=== PATIENT | male | born 1965 | race African-American/Black ===

== ENCOUNTER 2017-07-01 12:23 | Inpatient (IN) | payer OTHER ==
[2017-07-01 15:36] VITALS: BMI 25.7
--- NOTE | 2017-07-01 16:56 | HP ---
CIWA Score - CIWA Score Nausea/Vomitin-Mild Nausea/No Vomiting Muscle Tremors: 3 Anxiety: 4-Mod. Anxious/Guarded Agitation: 4-Moderately Restless Paroxysmal Sweats: 1-Minimal Palms Moist Orientation: 0-Oriented Tacttile Disturbances: 0-None Auditory Disturbances: 0-None Visual Disturbances: 0-None Headache: 0-None Present CIWA-Ar Total Score: 13 Admission ROS S - HPI Chief Complaint: withdrawal sx Allergies/Adverse Reactions: Allergies Allergy/AdvReac Type Severity Reaction Status Date / Time No Known Allergies Allergy Verified 07/01/17 16:32 History of Present Illness: 52 years old male with long history of alcohol nicotine cocaine dependence has diabetes ii, NEUROPATHY, GERD, AND DEPRESSION, SUPERFICIAL SELF CUT 06/27/17, TREATED AT [facility] FROM 06/30-07/01, DISCHARGED TO [facility] FOR ALCOHOL DETOX IS ADMITTED TO DETOX Exam Limitations: No Limitations - Ebola screening Have you traveled outside of the country in the last 21 days: No Have you had contact with anyone from an Ebola affected area: No Have you been sick,other than usual withdrawal symptoms: No Do you have a fever: No - Review of Systems Constitutional: Loss of Appetite, Changes in sleep, Unintentional Wgt. Loss, Unexplained wgt Loss EENT: reports: No Symptoms Reported Respiratory: reports: No Symptoms reported Cardiac: reports: No Symptoms Reported GI: reports: Nausea, Poor Appetite, Poor Fluid Intake, Indigestion, Abdominal cramping : reports: No Symptoms Reported Musculoskeletal: reports: No Symptoms Reported Integumentary: reports: Change in Color (LEFT WRIST SUPERFICIAL CUT -) Neuro: reports: Tremors Endocrine: reports: No Symptoms Reported Hematology: reports: No Symptoms Reported Psychiatric: reports: Judgement Intact, Orientated x3, Depressed Other Systems: Reviewed and Negative Patient History - Patient Medical History Hx Anemia: No Hx Asthma: No Hx Chronic Obstructive Pulmonary Disease (COPD): No Hx Cancer: No Hx Cardiac Disorders: No Hx Congestive Heart Failure: No Hx Hypertension: Yes Hx Hypercholesterolemia: No Hx Pacemaker: No HX Cerebrovascular Accident: No Hx Seizures: No Hx Dementia: No Hx Diabetes: Yes Hx Gastrointestinal Disorders: Yes Hx Liver Disease: No Hx Genitourinary Disorders: No Hx Sexually Transmitted Disorders: Yes (SYPHILUS) Hx Renal Disease (ESRD): No Hx Thyroid Disease: No Hx Human Immunodeficiency Virus (HIV): No Hx Hepatitis C: Yes (TREATED) Hx Depression: Yes Hx Suicide Attempt: Yes (CUT SELF 06/27/17) Hx Bipolar Disorder: No Hx Schizophrenia: No - Patient Surgical History Past Surgical History: Yes Hx Neurologic Surgery: No Hx Cataract Extraction: No Hx Cardiac Surgery: No Hx Lung Surgery: No Hx Breast Surgery: No Hx Breast Biopsy: No Hx Abdominal Surgery: No Hx Appendectomy: No Hx Cholecystectomy: No Hx Genitourinary Surgery: No Hx Orthopedic Surgery: Yes (RIGHT ANKLE [id number]) Anesthesia Reaction: No - PPD History Previous Implant?: Yes Documented Results: Negative w/o proof Implanted On Prior [facility] Admission?: No PPD to be Administered?: Yes - Smoking Cessation Smoking history: Current every day smoker Have you smoked in the past 12 months: Yes Aproximately how many cigarettes per day: 4 Cigars Per Day: 0 Hx Chewing Tobacco Use: No Initiated information on smoking cessation: Yes 'Breaking Loose' booklet given: 07/01/17 - Substance & Tx. History Hx Alcohol Use: Yes Hx Substance Use: Yes Substance Use Type: Alcohol, Cocaine Hx Substance Use Treatment: Yes ("YEARS AGO") - Substances Abused Alcohol Route: Oral Frequency: Daily Amount used: 2 PINTS VOLKA Age of first use: 23 Date of Last Use: 06/30/17 Admission Physical Exam [facility] - Vital Signs Vital Signs: Vital Signs - 24 hr 07/01/17 15:34 Temperature 96.8 F L Pulse Rate 69 Respiratory 20 Rate Blood Pressure 137/93 - Physical General Appearance: Yes: Appropriately Dressed, Mild Distress, Thin, Tremorous, Irritable, Sweating, Anxious HEENTM: Yes: Hearing grossly Normal, Normal ENT Inspection, Normocephalic, Normal Voice Respiratory: Yes: Chest Non-Tender, Lungs Clear, Normal Breath Sounds, No Respiratory Distress, No Accessory Muscle Use Neck: Yes: Supple, Trachea in good position Breast: Yes: Breasts Symetrical Cardiology: Yes: Regular Rhythm, Regular Rate, S1, S2 Abdominal: Yes: Normal Bowel Sounds, Non Tender, Soft Genitourinary: Yes: Within Normal Limits Back: Yes: Normal Inspection Musculoskeletal: Yes: full range of Motion, Gait Steady Extremities: Yes: Normal Range of Motion, Non-Tender, Tremors, Other (LEFT WRIST SELF CUT SUPERFICIAL 06/27/17) Neurological: Yes: Fully Oriented, Alert, Motor Strength 5/5, Normal Response, Depressed Affect Integumentary: Yes: Warm, Other (LEFT WRIST VERTICAL SELF CUT 06/27/17) Lymphatic: Yes: Within Normal Limits - Diagnostic (1) Alcohol dependence with uncomplicated withdrawal Current Visit: Yes Status: Acute (2) Diabetes mellitus, type II, insulin dependent Current Visit: Yes Status: Chronic (3) Hypertension Current Visit: Yes Status: Chronic Qualifiers: Hypertension type: essential hypertension Qualified Code(s): I10 - Essential (primary) hypertension (4) Depression Current Visit: Yes Status: Suspected Qualifiers: Depression Type: dysthymia Qualified Code(s): F34.1 - Dysthymic disorder (5) Syphilis contact, treated Current Visit: Yes Status: Resolved (6) GERD (gastroesophageal reflux disease) Current Visit: Yes Status: Chronic Qualifiers: Esophagitis presence: without esophagitis Qualified Code(s): K21.9 - Gastro-esophageal reflux disease without esophagitis (7) Nicotine dependence Current Visit: Yes Status: Acute Qualifiers: Nicotine product type: cigarettes Substance use status: in withdrawal Qualified Code(s): F17.213 - Nicotine dependence, cigarettes, with withdrawal (8) Weight loss Current Visit: Yes Status: Acute (9) Hepatitis C carrier Current Visit: Yes Status: Resolved (10) Injury of wrist, left, superficial Current Visit: Yes Status: Acute Qualifiers: Encounter type: subsequent encounter Qualified Code(s): S60.912D - Unspecified superficial injury of left wrist, subsequent encounter Comment: NO SIGNS OF INFECTION KEEP AREA CLEAN AND DRY BACITRACIN OINTMENT PRN Cleared for Admission S - Detox or Rehab [facility] Level of Care: Medically Managed Detox Regimen/Protocol: Librium [facility] Breath Alcohol Content Breath Alcohol Content: 0 Urine Drug Screen - Results Drug Screen Negative: No Urine Drug Screen Results: BILL-Cocaine
[2017-07-01] MEDS ORDERED: NICOTINE POLACRILEX 2 MG GUM BC PRN (17:02)
[2017-07-01] MEDS ORDERED: hydrOXYzine PAMOATE 50 MG CAPSULE (FP) PO PRN (17:02)
[2017-07-01] MEDS ORDERED: guaiFENesin/D-METHORPHAN HB 10 ML UNIT-DOSE CUPS PO PRN (17:02)
[2017-07-01] MEDS ORDERED: MAG HYDROX/AL HYDROX/SIMETH 30 ML UNIT-DOSE CUP PO PRN (17:02)
[2017-07-01] MEDS ORDERED: MAGNESIUM CITRATE 300 ML BOTTLE PO PRN (17:02)
[2017-07-01] MEDS ORDERED: NICOTINE 14 MG/24 HOURS TOPICAL PATCH TD PRN (17:02)
[2017-07-01] MEDS ORDERED: MENTHOL/PHENOL 1 EACH UD MM PRN (17:02)
[2017-07-01] MEDS ORDERED: ACETAMINOPHEN 325 MG TABLET (FP) PO PRN (17:02)
[2017-07-01] MEDS ORDERED: LOPERAMIDE HCL 2 MG CAPSULE PO PRN (17:02)
[2017-07-01] MEDS ORDERED: P-EPHED 60MG/TRIPROLIDI 2.5MG TABLET PO PRN (17:02)
[2017-07-01] MEDS ORDERED: MAGNESIUM HYDROX 2400MG/30ML ORAL SUSPENSION 30 ML CUP PO PRN (17:02)
[2017-07-01] MEDS ORDERED: chlordiazePOXIDE HCL 25 MG CAPSULE PO PRN (17:02)
[2017-07-01] MEDS ORDERED: COLLOIDAL OATMEAL 1 BAR EACH TP PRN (17:10)
[2017-07-01] MEDS: BACITRACIN 0.9 GM PACKET TP SCH ×2 (18:29→22:10)
[2017-07-01] MEDS ORDERED: INSULIN (NOVOLOG) ASPART 100 UNITS/ML 10ML VIAL ONE (21:33)
[2017-07-01] MEDS: INSULIN SLIDING SCALE (NOVOLOG) 1 VIAL SQ SCH (21:47)
[2017-07-01] MEDS: RANITIDINE HCL 150 MG TABLET (FP) PO SCH (22:10)
[2017-07-01] MEDS: THIAMINE HCL 100 MG TABLET (FP) PO SCH (22:10)
[2017-07-01] MEDS: chlordiazePOXIDE HCL 25 MG CAPSULE PO SCH (22:10)
[2017-07-01] MEDS: diphenhydrAMINE HCL 50 MG CAPSULE PO PRN (22:11)
[2017-07-01] MEDS: GABAPENTIN 400 MG CAPSULE (FP) PO SCH (22:11)
[2017-07-01] MEDS: MINERAL OIL/PETROLAT/WATER TOPICAL CREAM 113 GM JAR TP SCH (22:12)
[2017-07-01 23:19] LABS: URINE APPEARANCE CLEAR; URINE BILIRUBIN NEGATIVE (NEGATIVE); URINE BLOOD TRACE-INTA (NEGATIVE); URINE COLOR LT. YELLOW; URINE GLUCOSE (UA) 3+ (NEGATIVE); URINE KETONE NEGATIVE (NEGATIVE); URINE NITRITE NEGATIVE (NEGATIVE); URINE PROTEIN NEGATIVE (NEGATIVE); URINE UROBILINOGEN 0.2 mg/dL (0.2-1.0)
[2017-07-02] MEDS: chlordiazePOXIDE HCL 25 MG CAPSULE PO SCH ×4 (06:41→22:03)
[2017-07-02] MEDS: GABAPENTIN 400 MG CAPSULE (FP) PO SCH ×4 (06:41→22:03)
[2017-07-02] MEDS: metFORMIN HCL 500 MG TABLET (FP) PO SCH ×2 (07:23→16:46)
[2017-07-02] MEDS ORDERED: INSULIN (NOVOLOG) ASPART 100 UNITS/ML 10ML VIAL ONE ×4 (07:25→21:55)
[2017-07-02] MEDS: INSULIN SLIDING SCALE (NOVOLOG) 1 VIAL SQ SCH ×4 (07:25→22:04)
[2017-07-02 09:40] LABS: MCH 27.2 pg (25.7-33.7); MCHC 32.3 g/dl (32.0-35.9); MEAN CELL VOLUME 84.4 fl (80-96); MEAN PLT VOLUME 7.3 fl (7.5-11.1); PLATELET COUNT 337 K/MM3 (134-434); RDW 14.3 % (11.9-15.9); WHITE BLOOD COUNT 5.6 K/mm3 (4.0-10.0)
[2017-07-02 10:04] LABS: ALBUMIN 2.9 g/dl (3.4-5.0); ALK PHOS 68 U/L (45-117); ANION GAP 7 (8-16); BILIRUBIN,TOTAL 0.2 mg/dL (0.2-1.0); CALCIUM 8.5 mg/dL (8.5-10.1); CO2 28 mmol/L (21-32); GLUCOSE,RANDOM 293 mg/dL (74-106); SGOT/AST 13 U/L (15-37); SGPT/ALT 28 U/L (12-78); TOT PROT 6.4 g/dl (6.4-8.2)
[2017-07-02] MEDS: LISINOPRIL 10 MG TABLET (FP) PO SCH (10:14)
[2017-07-02] MEDS: PRENATAL VITAMINS W/ FOLIC ACID TABLET (FP) PO SCH (10:14)
[2017-07-02] MEDS: RANITIDINE HCL 150 MG TABLET (FP) PO SCH ×2 (10:14→22:03)
[2017-07-02] MEDS: BACITRACIN 0.9 GM PACKET TP SCH ×4 (10:14→22:03)
--- NOTE | 2017-07-02 10:58 | CONSULT ---
[facility] Psychiatric Consult - Data Date of interview: 07/02/17 Admission source: [facility] Identifying data: First admission to [facility] for this 52 y/o AA male seeking detox treatment on for alcohol and cocaine dependence.Patient is single, a father of two,domiciled,unemployed and supported on Public Assistance. Substance Abuse History: Confirmed by patient in this session. Smoking Cessation. Smoking history: Current every day smoker. Have you smoked in the past 12 months: Yes. Aproximately how many cigarettes per day: 4. Cigars Per Day: 0. Hx Chewing Tobacco Use: No. Initiated information on smoking cessation : Yes. 'Breaking Loose' booklet given: 07/01/17. - Substance & Tx. History. Hx Alcohol Use: Yes. Hx Substance Use: Yes. Substance Use Type: Alcohol, Cocaine. Hx Substance Use Treatment: Yes ("YEARS AGO"). - Substances Abused. Alcohol. Route: Oral. Frequency: Daily. Amount used: 2 PINTS VOLKA. Age of first use: 23. Date of Last Use: 06/30/17 Medical History: GERD,diabetes mellitus,hypertension,neuropathy and a history of orthosurgery for fracture of right ankle (1993) + past treatment for syphilis. Psychiatric History: Patient admits to one psychiatric hospitalization at [facility].Diagnosed with " Mood Disorder " as per self- report.Prescribed seroquel 150 mg " for sleep ".Mr Shi indicates that he does not have an OPD care provider.Non-adherent to medication for " some time ".Patient denies history of suicide attempts. Physical/Sexual Abuse/Trauma History: Patient denies history of abuse. Additional Comment: Urine Drug Screen Results: BILL-Cocaine.Noted. Mental Status Exam - Mental Status Exam Alert and Oriented to: Time, Place, Person Cognitive Function: Good Patient Appearance: Well Groomed Mood: Hopeful, Euthymic Affect: Appropriate, Normal Range Patient Behavior: Fatigued, Cooperative Speech Pattern: Clear, Appropriate Voice Loudness: Normal Thought Process: Goal Oriented Thought Disorder: Not Present Hallucinations: Denies Suicidal Ideation: Denies Homicidal Ideation: Denies Insight/Judgement: Poor Sleep: Poorly, Difficulty falling asleep Appetite: Good Muscle strength/Tone: Normal Gait/Station: Normal Psychiatric Findings - Problem List ([place] 1, 2,3) (1) Alcohol dependence with uncomplicated withdrawal Status: Acute (2) Cocaine dependence Status: Acute (3) Nicotine dependence Status: Acute Qualifiers: Nicotine product type: cigarettes Substance use status: in withdrawal Qualified Code(s): F17.213 - Nicotine dependence, cigarettes, with withdrawal (4) Substance induced mood disorder Status: Acute (5) Diabetes mellitus, type II, insulin dependent Status: Chronic (6) GERD (gastroesophageal reflux disease) Status: Chronic Qualifiers: Esophagitis presence: without esophagitis Qualified Code(s): K21.9 - Gastro-esophageal reflux disease without esophagitis (7) Hypertension Status: Chronic Qualifiers: Hypertension type: essential hypertension Qualified Code(s): I10 - Essential (primary) hypertension (8) Hepatitis C carrier Status: Resolved (9) Syphilis contact, treated Status: Resolved (10) Injury of wrist, left, superficial Status: Acute Qualifiers: Encounter type: subsequent encounter Qualified Code(s): S60.912D - Unspecified superficial injury of left wrist, subsequent encounter Comment: NO SIGNS OF INFECTION KEEP AREA CLEAN AND DRY BACITRACIN OINTMENT PRN (11) Insomnia Status: Acute - Initial Treatment Plan Initial Treatment Plan: Psychoeducation.Detoxification.Seroquel 150 mg po hs at patient's request.Side effects/benefits discussed with patient.He agrees to follow this careplan.Recent pharmacy claims,in view of scripts for lithium () and sertraline (06/06/17),are discussed with patient.Mr Shi denies taking these medications.Observation.
--- NOTE | 2017-07-02 11:25 | PN ---
[facility] CIWA - CIWA Score Nausea/Vomitin-No Nausea/No Vomiting Muscle Tremors: 4-Moderate,w/Arms Extend Anxiety: 4-Mod. Anxious/Guarded Agitation: 4-Moderately Restless Paroxysmal Sweats: 1-Minimal Palms Moist Orientation: 0-Oriented Tacttile Disturbances: 3-Moderate Itch/Numb/Burn Auditory Disturbances: 0-None Visual Disturbances: 0-None Headache: 0-None Present CIWA-Ar Total Score: 16 S Progress Note (SOAP) Subjective: ANXIETY,SWEATS,IRRITABILITY,TREMORS, DIARRHEA. Objective: 07/02/17 11:24 Vital Signs Temperature 96.6 F L 07/02/17 09:12 Pulse Rate 67 07/02/17 09:12 Respiratory Rate 18 07/02/17 09:12 Blood Pressure 141/90 07/02/17 09:12 O2 Sat by Pulse Oximetry (%) Laboratory Last Values WBC 5.6 K/mm3 (4.0-10.0) 07/02/17 07:00 RBC 4.27 M/mm3 (4.00-5.60) 07/02/17 07:00 Hgb 11.6 GM/dL (11.7-16.9) L 07/02/17 07:00 Hct 36.0 % (35.4-49) 07/02/17 07:00 MCV 84.4 fl (80-96) 07/02/17 07:00 MCH 27.2 pg (25.7-33.7) 07/02/17 07:00 MCHC 32.3 g/dl (32.0-35.9) 07/02/17 07:00 RDW 14.3 % (11.9-15.9) 07/02/17 07:00 Plt Count 337 K/MM3 (134-434) 07/02/17 07:00 MPV 7.3 fl (7.5-11.1) L 07/02/17 07:00 Sodium 141 mmol/L (136-145) 07/02/17 07:00 Potassium 4.2 mmol/L (3.5-5.1) 07/02/17 07:00 Chloride 106 mmol/L (98-107) 07/02/17 07:00 Carbon Dioxide 28 mmol/L (21-32) 07/02/17 07:00 Anion Gap 7 (8-16) L 07/02/17 07:00 BUN 14 mg/dL (7-18) 07/02/17 07:00 Creatinine 1.0 mg/dL (0.7-1.3) 07/02/17 07:00 Creat Clearance w eGFR > 60 (>60) 07/02/17 07:00 POC Glucometer 300 UNITS (()) 07/02/17 10:41 Random Glucose 293 mg/dL (74-106) H 07/02/17 07:00 Calcium 8.5 mg/dL (8.5-10.1) 07/02/17 07:00 Total Bilirubin 0.2 mg/dL (0.2-1.0) 07/02/17 07:00 AST 13 U/L (15-37) L 07/02/17 07:00 ALT 28 U/L (12-78) 07/02/17 07:00 Alkaline Phosphatase 68 U/L (45-117) 07/02/17 07:00 Total Protein 6.4 g/dl (6.4-8.2) 07/02/17 07:00 Albumin 2.9 g/dl (3.4-5.0) L 07/02/17 07:00 Urine Color Lt. yellow 07/01/17 18:30 Urine Appearance Clear 07/01/17 18:30 Urine pH 6.0 (5.0-8.0) 07/01/17 18:30 Urine Protein Negative (NEGATIVE) 07/01/17 18:30 Urine Glucose (UA) 3+ (NEGATIVE) H 07/01/17 18:30 Urine Ketones Negative (NEGATIVE) 07/01/17 18:30 Urine Blood Trace-inta (NEGATIVE) 07/01/17 18:30 Urine Nitrite Negative (NEGATIVE) 07/01/17 18:30 Urine Bilirubin Negative (NEGATIVE) 07/01/17 18:30 Urine Urobilinogen 0.2 mg/dL (0.2-1.0) 07/01/17 18:30 Assessment: 07/02/17 11:24 WITHDRAWAL SX Plan: CONTINUE DETOX IMODIUM PRN
--- NOTE | 2017-07-02 13:05 | EKG ---
Test Reason : Blood Pressure : / mmHG Vent. Rate : 071 BPM Atrial Rate : 071 BPM P-R Int : 162 ms QRS Dur : 080 ms QT Int : 458 ms P-R-T Axes : 070 065 069 degrees QTc Int : 497 ms NORMAL SINUS RHYTHM SUBOPTIMAL TRACING,BASELINE ARTIFACTS NONSPECIFIC ST ABNORMALITY AND U WAVES IN PRECHORDIAL LEADS PROLONGED QT ABNORMAL ECG NO PREVIOUS ECGS AVAILABLE CORRELATE CLINICALLY AND REPEAT TRACING INDICATED Confirmed by CLARE MANCILLA MD ([id number]) on 07/02/2017 1:05:14 PM Referred By: Confirmed By:CLARE MANCILLA MD
[2017-07-02] MEDS: diphenhydrAMINE HCL 50 MG CAPSULE PO PRN (22:03)
[2017-07-02] MEDS: MINERAL OIL/PETROLAT/WATER TOPICAL CREAM 113 GM JAR TP SCH (22:04)
[2017-07-02] MEDS: THIAMINE HCL 100 MG TABLET (FP) PO SCH (22:58)
[2017-07-03] MEDS: GABAPENTIN 400 MG CAPSULE (FP) PO SCH (06:30)
[2017-07-03] MEDS: chlordiazePOXIDE HCL 25 MG CAPSULE PO SCH ×2 (06:30→10:17)
[2017-07-03] MEDS ORDERED: INSULIN (NOVOLOG) ASPART 100 UNITS/ML 10ML VIAL ONE (07:54)
[2017-07-03] MEDS: metFORMIN HCL 500 MG TABLET (FP) PO SCH (08:01)
[2017-07-03] MEDS: INSULIN SLIDING SCALE (NOVOLOG) 1 VIAL SQ SCH ×2 (08:01→11:18)
[2017-07-03] MEDS: RANITIDINE HCL 150 MG TABLET (FP) PO SCH (10:17)
[2017-07-03] MEDS: PRENATAL VITAMINS W/ FOLIC ACID TABLET (FP) PO SCH (10:17)
[2017-07-03] MEDS: BACITRACIN 0.9 GM PACKET TP SCH (10:17)
[2017-07-03] MEDS: LISINOPRIL 10 MG TABLET (FP) PO SCH (10:17)
--- NOTE | 2017-07-03 10:52 | PN ---
[facility] CIWA - CIWA Score Nausea/Vomitin-No Nausea/No Vomiting Muscle Tremors: 4-Moderate,w/Arms Extend Anxiety: 3 Agitation: 3 Paroxysmal Sweats: 1-Minimal Palms Moist Orientation: 0-Oriented Tacttile Disturbances: 3-Moderate Itch/Numb/Burn Auditory Disturbances: 0-None Visual Disturbances: 0-None Headache: 0-None Present CIWA-Ar Total Score: 14 S Progress Note (SOAP) Subjective: DECREASED TREMORS, ANXITY, SWEATS. ALERT O X 3. NAD. Objective: 07/03/17 10:51 Vital Signs Temperature 98.7 F 07/03/17 09:53 Pulse Rate 69 07/03/17 09:53 Respiratory Rate 20 07/03/17 09:53 Blood Pressure 136/86 07/03/17 09:53 O2 Sat by Pulse Oximetry (%) Laboratory Last Values WBC 5.6 K/mm3 (4.0-10.0) 07/02/17 07:00 RBC 4.27 M/mm3 (4.00-5.60) 07/02/17 07:00 Hgb 11.6 GM/dL (11.7-16.9) L 07/02/17 07:00 Hct 36.0 % (35.4-49) 07/02/17 07:00 MCV 84.4 fl (80-96) 07/02/17 07:00 MCH 27.2 pg (25.7-33.7) 07/02/17 07:00 MCHC 32.3 g/dl (32.0-35.9) 07/02/17 07:00 RDW 14.3 % (11.9-15.9) 07/02/17 07:00 Plt Count 337 K/MM3 (134-434) 07/02/17 07:00 MPV 7.3 fl (7.5-11.1) L 07/02/17 07:00 Sodium 141 mmol/L (136-145) 07/02/17 07:00 Potassium 4.2 mmol/L (3.5-5.1) 07/02/17 07:00 Chloride 106 mmol/L (98-107) 07/02/17 07:00 Carbon Dioxide 28 mmol/L (21-32) 07/02/17 07:00 Anion Gap 7 (8-16) L 07/02/17 07:00 BUN 14 mg/dL (7-18) 07/02/17 07:00 Creatinine 1.0 mg/dL (0.7-1.3) 07/02/17 07:00 Creat Clearance w eGFR > 60 (>60) 07/02/17 07:00 POC Glucometer 305 UNITS (()) 07/03/17 06:17 Random Glucose 293 mg/dL (74-106) H 07/02/17 07:00 Calcium 8.5 mg/dL (8.5-10.1) 07/02/17 07:00 Total Bilirubin 0.2 mg/dL (0.2-1.0) 07/02/17 07:00 AST 13 U/L (15-37) L 07/02/17 07:00 ALT 28 U/L (12-78) 07/02/17 07:00 Alkaline Phosphatase 68 U/L (45-117) 07/02/17 07:00 Total Protein 6.4 g/dl (6.4-8.2) 07/02/17 07:00 Albumin 2.9 g/dl (3.4-5.0) L 07/02/17 07:00 Urine Color Lt. yellow 07/01/17 18:30 Urine Appearance Clear 07/01/17 18:30 Urine pH 6.0 (5.0-8.0) 07/01/17 18:30 Ur Specific [place] 1.010 (1.005-1.025) 07/01/17 18:30 Urine Protein Negative (NEGATIVE) 07/01/17 18:30 Urine Glucose (UA) 3+ (NEGATIVE) H 07/01/17 18:30 Urine Ketones Negative (NEGATIVE) 07/01/17 18:30 Urine Blood Trace-inta (NEGATIVE) 07/01/17 18:30 Urine Nitrite Negative (NEGATIVE) 07/01/17 18:30 Urine Bilirubin Negative (NEGATIVE) 07/01/17 18:30 Urine Urobilinogen 0.2 mg/dL (0.2-1.0) 07/01/17 18:30 RPR Titer Nonreactive (NONREACTIVE) 07/02/17 07:00 Assessment: 07/03/17 10:51 WITHDRAWAL SX Plan: CONTINUE DETOX
--- NOTE | 2017-07-03 13:34 | DS ---
[facility] Detox Discharge Summary Admission Date: 07/01/17 Discharge Date: 07/03/17 - History Present History: Alcohol Dependence, Cocaine Dependence Additional Comments: PT DECLINED TO CONTINUE WITH DETOX FOR PERSONAL REASONS. PT WILL FOLLOW UP WITH PMD, DR JAS MULLINS IN [place] FOR MEDICAL MANAGEMENT OF COMORBID CONDITIONS. PT STATES "I GOT MY MEDICATIONS AND DON'T NEED PRESCRIPTION". Pertinent Past History: HTN DM [facility] GERD - Physical Exam Results Vital Signs: Vital Signs Temperature 98.7 F 07/03/17 09:53 Pulse Rate 69 07/03/17 09:53 Respiratory Rate 20 07/03/17 09:53 Blood Pressure 136/86 07/03/17 09:53 O2 Sat by Pulse Oximetry (%) Pertinent Admission Physical Exam Findings: WITHDRAWAL SX Laboratory Last Values WBC 5.6 K/mm3 (4.0-10.0) 07/02/17 07:00 RBC 4.27 M/mm3 (4.00-5.60) 07/02/17 07:00 Hgb 11.6 GM/dL (11.7-16.9) L 07/02/17 07:00 Hct 36.0 % (35.4-49) 07/02/17 07:00 MCV 84.4 fl (80-96) 07/02/17 07:00 MCH 27.2 pg (25.7-33.7) 07/02/17 07:00 MCHC 32.3 g/dl (32.0-35.9) 07/02/17 07:00 RDW 14.3 % (11.9-15.9) 07/02/17 07:00 Plt Count 337 K/MM3 (134-434) 07/02/17 07:00 MPV 7.3 fl (7.5-11.1) L 07/02/17 07:00 Sodium 141 mmol/L (136-145) 07/02/17 07:00 Potassium 4.2 mmol/L (3.5-5.1) 07/02/17 07:00 Chloride 106 mmol/L (98-107) 07/02/17 07:00 Carbon Dioxide 28 mmol/L (21-32) 07/02/17 07:00 Anion Gap 7 (8-16) L 07/02/17 07:00 BUN 14 mg/dL (7-18) 07/02/17 07:00 Creatinine 1.0 mg/dL (0.7-1.3) 07/02/17 07:00 Creat Clearance w eGFR > 60 (>60) 07/02/17 07:00 POC Glucometer 305 UNITS (()) 07/03/17 06:17 Random Glucose 293 mg/dL (74-106) H 07/02/17 07:00 Calcium 8.5 mg/dL (8.5-10.1) 07/02/17 07:00 Total Bilirubin 0.2 mg/dL (0.2-1.0) 07/02/17 07:00 AST 13 U/L (15-37) L 07/02/17 07:00 ALT 28 U/L (12-78) 07/02/17 07:00 Alkaline Phosphatase 68 U/L (45-117) 07/02/17 07:00 Total Protein 6.4 g/dl (6.4-8.2) 07/02/17 07:00 Albumin 2.9 g/dl (3.4-5.0) L 07/02/17 07:00 Urine Color Lt. yellow 07/01/17 18:30 Urine Appearance Clear 07/01/17 18:30 Urine pH 6.0 (5.0-8.0) 07/01/17 18:30 Ur Specific [place] 1.010 (1.005-1.025) 07/01/17 18:30 Urine Protein Negative (NEGATIVE) 07/01/17 18:30 Urine Glucose (UA) 3+ (NEGATIVE) H 07/01/17 18:30 Urine Ketones Negative (NEGATIVE) 07/01/17 18:30 Urine Blood Trace-inta (NEGATIVE) 07/01/17 18:30 Urine Nitrite Negative (NEGATIVE) 07/01/17 18:30 Urine Bilirubin Negative (NEGATIVE) 07/01/17 18:30 Urine Urobilinogen 0.2 mg/dL (0.2-1.0) 07/01/17 18:30 RPR Titer Nonreactive (NONREACTIVE) 07/02/17 07:00 - Treatment Hospital Course: Discharged Condition Good - Medication Discharge Medications: Ambulatory Orders Gabapentin [Neurontin -] 400 mg PO Q8H 07/01/17 Insulin Lispro [Humalog] 6 units SQ ASDIR 07/01/17 Lisinopril [Zestril] 10 mg PO DAILY 07/01/17 Metformin HCl [Glucophage] 1,000 mg PO BID 07/01/17 Pantoprazole Sodium [Protonix -] 20 mg PO DAILY 07/01/17 Quetiapine Fumarate [Seroquel -] 150 mg PO HS 07/01/17 - Diagnosis (1) Alcohol dependence with uncomplicated withdrawal Status: Acute (2) Nicotine dependence Status: Acute Qualifiers: Qualified Code(s): F17.213 - Nicotine dependence, cigarettes, with withdrawal (3) Diabetes mellitus, type II, insulin dependent Status: Chronic (4) GERD (gastroesophageal reflux disease) Status: Chronic Qualifiers: Qualified Code(s): K21.9 - Gastro-esophageal reflux disease without esophagitis (5) Hypertension Status: Chronic Qualifiers: Qualified Code(s): I10 - Essential (primary) hypertension (6) Injury of wrist, left, superficial Status: Acute Qualifiers: Qualified Code(s): S60.912D - Unspecified superficial injury of left wrist, subsequent encounter (7) Weight loss Status: Acute - AMA Did Patient Leave Against Medical Advice: Yes (AMA)
[2017-07-03 13:43] VITALS: BP 137/89; PULSE 68; TEMP 96.9
[2017-07-03] MEDS ORDERED: QUEtiapine FUMARATE 50 MG TABLET PO SCH (22:00)
[2017-07-03] MEDS ORDERED: chlordiazePOXIDE 5 MG CAPSULE PO SCH (23:00)
[2017-07-04] MEDS ORDERED: chlordiazePOXIDE HCL 10 MG CAPSULE PO SCH (23:00)
== END 2017-07-03 13:49 | disposition left against medical advice (07) | DRG 770 ==
LOC: YASAS 12:23 → Y3N 17:33
PROVIDERS: ADMIT Internal Medicine; ATTEND Internal Medicine
PROC: HZ2ZZZZ Detoxification Services for Substance Abuse Treatment (ICD-10-PCS; principal; 2017-07-01)
DX: F17.213 Nicotine dependence, cigarettes, with withdrawal (principal); F19.24 Other psychoactive substance dependence with psychoactive substance-induced mood disorder; G47.00 Insomnia, unspecified; I10 Essential (primary) hypertension; E11.9 Type 2 diabetes mellitus without complications; Z79.4 Long term (current) use of insulin; Z79.84 Long term (current) use of oral hypoglycemic drugs; K21.9 Gastro-esophageal reflux disease without esophagitis; R63.4 Abnormal weight loss; Z68.25 Body mass index [BMI] 25.0-25.9, adult; S60.912D Unspecified superficial injury of left wrist, subsequent encounter; X58.XXXD Exposure to other specified factors, subsequent encounter
CPT/HCPCS: 36415; 80053; 81003; 85027; 86593; 93005; 93010

== ENCOUNTER 2017-09-06 12:08 | Inpatient (IN) | payer OTHER ==
[2017-09-06 12:12] VITALS: BMI 25.5
--- NOTE | 2017-09-06 16:42 | HP ---
CIWA Score - CIWA Score Nausea/Vomitin-Mild Nausea/No Vomiting Muscle Tremors: 3 Anxiety: 3 Agitation: 3 Paroxysmal Sweats: 1-Minimal Palms Moist Orientation: 0-Oriented Tacttile Disturbances: 0-None Auditory Disturbances: 0-None Visual Disturbances: 2-Mild Sensitivity Headache: 0-None Present CIWA-Ar Total Score: 13 Admission ROS BHS - HPI Chief Complaint: WITHDRAWAL SYMPTOMS Allergies/Adverse Reactions: Allergies Allergy/AdvReac Type Severity Reaction Status Date / Time No Known Allergies Allergy Verified 09/06/17 14:24 History of Present Illness: 53 Y.O. MAN WITH HISTORY OF ALCOHOL AND CRACK COCAINE-DEPENDENCE IS HERE SEEKING DETOX. HE WAS LAST HERE IN 2016 BUT LEFT AMA. DOES NOT HAVE A SIGNIFICANT PERIOD SOBER. Exam Limitations: No Limitations - Ebola screening Have you traveled outside of the country in the last 21 days: No Have you had contact with anyone from an Ebola affected area: No Have you been sick,other than usual withdrawal symptoms: No Do you have a fever: No - Review of Systems Constitutional: Chills EENT: reports: No Symptoms Reported, Nose Congestion Respiratory: reports: No Symptoms reported Cardiac: reports: Chest Pain GI: reports: No Symptoms Reported : reports: No Symptoms Reported Musculoskeletal: reports: No Symptoms Reported Integumentary: reports: No Symptoms Reported Neuro: reports: Numbness, Tremors Endocrine: reports: No Symptoms Reported Hematology: reports: No Symptoms Reported Psychiatric: reports: Judgement Intact, Mood/Affect Appropiate, Orientated x3 Other Systems: Reviewed and Negative Patient History - Patient Medical History Hx Anemia: No Hx Asthma: No Hx Chronic Obstructive Pulmonary Disease (COPD): No Hx Cancer: No Hx Cardiac Disorders: No Hx Congestive Heart Failure: No Hx Hypertension: Yes Hx Hypercholesterolemia: No Hx Pacemaker: No HX Cerebrovascular Accident: No Hx Seizures: No Hx Dementia: No Hx Diabetes: Yes (IDDM) Hx Gastrointestinal Disorders: Yes (acid reflux) Hx Liver Disease: No Hx Genitourinary Disorders: No Hx Sexually Transmitted Disorders: No Hx Renal Disease (ESRD): No Hx Thyroid Disease: No Hx Human Immunodeficiency Virus (HIV): No Hx Hepatitis C: Yes (TREATED) Hx Depression: Yes Hx Suicide Attempt: No Hx Bipolar Disorder: Yes Hx Schizophrenia: No - Patient Surgical History Past Surgical History: Yes Hx Neurologic Surgery: No Hx Cataract Extraction: No Hx Cardiac Surgery: No Hx Lung Surgery: No Hx Breast Surgery: No Hx Breast Biopsy: No Hx Abdominal Surgery: No Hx Appendectomy: No Hx Cholecystectomy: No Hx Genitourinary Surgery: No Hx Section: No Hx Orthopedic Surgery: Yes (RIGHT ANKLE [id number]) Anesthesia Reaction: No - PPD History Previous Implant?: Yes Documented Results: Negative w/o proof Implanted On Prior [facility] Admission?: Yes Date: 07/03/17 PPD to be Administered?: Yes - Reproductive History Patient is a Female of Child Bearing Age (11 -55 yrs old): No - Smoking Cessation Smoking history: Current every day smoker Have you smoked in the past 12 months: Yes Aproximately how many cigarettes per day: 4 Cigars Per Day: 0 Hx Chewing Tobacco Use: No Initiated information on smoking cessation: Yes 'Breaking Loose' booklet given: 09/06/17 - Substance & Tx. History Hx Alcohol Use: Yes Hx Substance Use: Yes Substance Use Type: Alcohol, Cocaine Hx Substance Use Treatment: Yes (DETOX: 06/2017 BUT LEFT AMA ) - Substances Abused Crack Route: Smoking Frequency: 3-6 times per week Amount used: $200 Age of first use: 23 Date of Last Use: 09/04/17 Alcohol-beer/vodka Route: Oral Frequency: Daily Amount used: 2-3 6 pks./4 pts. Age of first use: 23 Date of Last Use: 09/04/17 Family Disease History - Family Disease History Family Disease History: Diabetes: Mother Admission Physical Exam BHS - Vital Signs Vital Signs: Vital Signs - 24 hr 09/06/17 12:10 Temperature 98.9 F Pulse Rate 80 Respiratory 18 Rate Blood Pressure 150/90 - Physical General Appearance: Yes: Irritable, Anxious HEENTM: Yes: Hearing grossly Normal, Normocephalic, Normal Voice Respiratory: Yes: Chest Non-Tender, Lungs Clear, Normal Breath Sounds, No Respiratory Distress, No Accessory Muscle Use Neck: Yes: No masses,lesions,Nodules Breast: Yes: Breast Exam Deferred Cardiology: Yes: Regular Rhythm, Regular Rate Abdominal: Yes: Normal Bowel Sounds, Non Tender Genitourinary: Yes: Other (NO COMPLAINTS REPORTED) Back: Yes: Normal Inspection Musculoskeletal: Yes: full range of Motion, Gait Steady, Pelvis Stable Extremities: Yes: Normal Capillary Refill, Normal Inspection, Tremors Neurological: Yes: multifocal button inspector II-XII NML intact, Fully Oriented, Alert, Normal Mood/ Affect, Normal Response Integumentary: Yes: Normal Color, Dry, Warm Lymphatic: Yes: Within Normal Limits - Diagnostic (1) Alcohol dependence with uncomplicated withdrawal Current Visit: Yes Status: Chronic (2) Cocaine dependence Current Visit: Yes Status: Chronic (3) Nicotine dependence Current Visit: Yes Status: Chronic Qualifiers: Nicotine product type: cigarettes Substance use status: in withdrawal Qualified Code(s): F17.213 - Nicotine dependence, cigarettes, with withdrawal (4) Diabetes mellitus, type II, insulin dependent Current Visit: Yes Status: Chronic (5) GERD (gastroesophageal reflux disease) Current Visit: Yes Status: Chronic Qualifiers: Esophagitis presence: without esophagitis Qualified Code(s): K21.9 - Gastro -esophageal reflux disease without esophagitis (6) Hypertension Current Visit: Yes Status: Chronic Qualifiers: Hypertension type: essential hypertension Qualified Code(s): I10 - Essential (primary) hypertension Cleared for Admission S - Detox or Rehab [facility] Level of Care: Medically Managed Detox Regimen/Protocol: Librium S Breath Alcohol Content Breath Alcohol Content: 0 Urine Drug Screen - Results Drug Screen Negative: No Urine Drug Screen Results: THC-Marijuana, BILL-Cocaine
[2017-09-06] MEDS ORDERED: MAGNESIUM HYDROX 2400MG/30ML ORAL SUSPENSION 30 ML CUP PO PRN (16:54)
[2017-09-06] MEDS ORDERED: MENTHOL/PHENOL 1 EACH UD MM PRN (16:54)
[2017-09-06] MEDS ORDERED: ACETAMINOPHEN 325 MG TABLET (FP) PO PRN (16:54)
[2017-09-06] MEDS ORDERED: hydrOXYzine PAMOATE 50 MG CAPSULE (FP) PO PRN (16:54)
[2017-09-06] MEDS ORDERED: P-EPHED 60MG/TRIPROLIDI 2.5MG TABLET PO PRN (16:54)
[2017-09-06] MEDS ORDERED: LOPERAMIDE HCL 2 MG CAPSULE PO PRN (16:54)
[2017-09-06] MEDS ORDERED: guaiFENesin/D-METHORPHAN HB 10 ML UNIT-DOSE CUPS PO PRN (16:54)
[2017-09-06] MEDS ORDERED: MAGNESIUM CITRATE 300 ML BOTTLE PO PRN (16:54)
[2017-09-06] MEDS ORDERED: IBUPROFEN 400 MG TABLET (FP) PO PRN (16:54)
[2017-09-06] MEDS ORDERED: chlordiazePOXIDE HCL 25 MG CAPSULE PO PRN (16:54)
[2017-09-06] MEDS ORDERED: MAG HYDROX/AL HYDROX/SIMETH 30 ML UNIT-DOSE CUP PO PRN (16:54)
[2017-09-06] MEDS ORDERED: chlordiazePOXIDE HCL 25 MG CAPSULE PO ONE (17:30)
[2017-09-06] MEDS: metFORMIN HCL 500 MG TABLET (FP) PO SCH (18:10)
[2017-09-06] MEDS: INSULIN SLIDING SCALE (NOVOLOG) 1 VIAL SQ SCH (18:14)
[2017-09-06] MEDS ORDERED: INSULIN (NOVOLOG) ASPART 100 UNITS/ML 10ML VIAL ONE (18:16)
[2017-09-06] MEDS ORDERED: cloNIDine HCL 0.1 MG TABLET PO ONE (19:03)
[2017-09-06 20:54] LABS: URINE APPEARANCE CLEAR; URINE BILIRUBIN NEGATIVE (NEGATIVE); URINE BLOOD 1+ (NEGATIVE); URINE COLOR LTYELLOW; URINE GLUCOSE (UA) 3+ (NEGATIVE); URINE KETONE NEGATIVE (NEGATIVE); URINE NITRITE NEGATIVE (NEGATIVE); URINE PROTEIN NEGATIVE (NEGATIVE); URINE UROBILINOGEN NEGATIVE mg/dL (0.2-1.0)
[2017-09-06 21:03] LABS: URINE BACTERIA RARE /hpf (NONE SEEN); URINE RBC 3; URINE WBC 1
[2017-09-06] MEDS ORDERED: diphenhydrAMINE HCL 25 MG CAPSULE (FP) PO ONE (22:00)
[2017-09-06] MEDS: ATORVASTATIN CA 20 MG TABLET (FP) PO SCH (22:52)
[2017-09-06] MEDS: THIAMINE HCL 100 MG TABLET (FP) PO SCH (22:52)
[2017-09-06] MEDS: chlordiazePOXIDE HCL 25 MG CAPSULE PO SCH (23:45)
[2017-09-07] MEDS: chlordiazePOXIDE HCL 25 MG CAPSULE PO SCH ×4 (06:43→22:16)
[2017-09-07] MEDS: INSULIN SLIDING SCALE (NOVOLOG) 1 VIAL SQ SCH ×3 (06:44→23:04)
[2017-09-07] MEDS: metFORMIN HCL 500 MG TABLET (FP) PO SCH ×2 (06:45→16:54)
[2017-09-07 10:38] LABS: MCH 26.9 pg (25.7-33.7); MEAN PLT VOLUME 8.4 fl (7.5-11.1); RDW 12.9 % (11.9-15.9)
[2017-09-07 10:40] LABS: MCHC 32.1 g/dl (32.0-35.9); MEAN CELL VOLUME 83.9 fl (80-96); PLATELET COUNT 234 K/MM3 (134-434)
[2017-09-07 10:49] LABS: ALBUMIN 3.6 g/dl (3.4-5.0); ANION GAP 10 (8-16); BILIRUBIN,TOTAL 0.3 mg/dL (0.2-1.0); CALCIUM 9.2 mg/dL (8.5-10.1); CO2 23 mmol/L (21-32); CREATININE 1.3 mg/dL (0.7-1.3); SGOT/AST 18 U/L (15-37); SGPT/ALT 30 U/L (12-78); TOT PROT 7.7 g/dl (6.4-8.2)
[2017-09-07 10:50] LABS: ALK PHOS 84 U/L (45-117)
[2017-09-07 11:07] LABS: GLUCOSE,RANDOM 374 mg/dL (74-106)
[2017-09-07] MEDS: PANTOPRAZOLE 20 MG TABLET (FP) PO SCH (11:13)
[2017-09-07] MEDS: LISINOPRIL 10 MG TABLET (FP) PO SCH (11:13)
[2017-09-07] MEDS: PRENATAL VITAMINS W/ FOLIC ACID TABLET (FP) PO SCH (11:13)
--- NOTE | 2017-09-07 11:38 | CONSULT ---
[facility] Psychiatric Consult - Data Date of interview: 09/07/17 Admission source: Self-referred Identifying data: Mr Shi is a 53 years old single Black male, father of 2 children, unemployed on, homeless Substance Abuse History: Reports history of alcohol and cocaine use. Refer to addiction counselor's note for further information Medical History: Significant for GERD, diabetes mellitus, hypertension, neuropathy, teatment for hepatitis c and a history of orthosurgery for fracture of right ankle (1993) + past treatment for syphilis. Smokes 4 cigarettes daily Psychiatric History: Patient is a poor historian and reliability of his history is questionable. Reports that he was admitted earlier this year to [facility] because of suicidal ideations. He said that he was diagnosed with Bipolar Disorder and prescribed Seroquel 150 mg po HS and some other medications. Reports that he was referred for follow up on discharge but did not comply. However, he said that he has been going to ED for refill of scripts for Seroquel. Reports feeling ok but sleeping poorly. He is mildly irritable during the interview Physical/Sexual Abuse/Trauma History: Denies history of verbal, physical or sexual abuse Additional Comment: Reports history of multiple previous arrests including felony convictions. Reports being on parole till 2021 Mental Status Exam - Mental Status Exam Alert and Oriented to: Time, Place, Person Cognitive Function: Fair Patient Appearance: Well Groomed Mood: Irritable Affect: Appropriate Patient Behavior: Cooperative Speech Pattern: Clear Voice Loudness: Normal Thought Process: Intact, Goal Oriented Hallucinations: Denies Suicidal Ideation: Denies Homicidal Ideation: Denies Insight/Judgement: Poor Sleep: Poorly Appetite: Good Muscle strength/Tone: Normal Gait/Station: Normal Psychiatric Findings - Problem List ([place] 1, 2,3) (1) Substance induced mood disorder Current Visit: No Status: Acute (2) Substance-induced sleep disorder Current Visit: Yes Status: Acute (3) Alcohol dependence with uncomplicated withdrawal Current Visit: Yes Status: Acute (4) Cocaine dependence Current Visit: Yes Status: Acute (5) Nicotine dependence Current Visit: Yes Status: Acute Qualifiers: Nicotine product type: cigarettes Substance use status: in withdrawal Qualified Code(s): F17.213 - Nicotine dependence, cigarettes, with withdrawal (6) Diabetes mellitus, type II, insulin dependent Current Visit: Yes Status: Chronic (7) GERD (gastroesophageal reflux disease) Current Visit: Yes Status: Chronic Qualifiers: Esophagitis presence: without esophagitis Qualified Code(s): K21.9 - Gastro -esophageal reflux disease without esophagitis (8) Hypertension Current Visit: Yes Status: Chronic Qualifiers: Hypertension type: essential hypertension Qualified Code(s): I10 - Essential (primary) hypertension (9) Hepatitis C Current Visit: Yes Status: Acute - Initial Treatment Plan Initial Treatment Plan: 1) Continue Seroquel 150 mg po HS. 2) continue inpatient detoxification
--- NOTE | 2017-09-07 13:06 | PN ---
S CIWA - CIWA Score Nausea/Vomitin-No Nausea/No Vomiting Muscle Tremors: 3 Anxiety: 4-Mod. Anxious/Guarded Agitation: 3 Paroxysmal Sweats: 3 Orientation: 0-Oriented Tacttile Disturbances: 0-None Auditory Disturbances: 0-None Visual Disturbances: 0-None Headache: 0-None Present CIWA-Ar Total Score: 13 BHS Progress Note (SOAP) Subjective: Anxiety,tremors,sweating,interrupted sleep,restless Objective: 09/07/17 13:05 Vital Signs - 8 hr 09/07/17 09/07/17 06:00 10:00 Temperature 98.2 F 96.4 F L Pulse Rate 65 67 Respiratory 18 18 Rate Blood Pressure 129/82 125/74 Laboratory Tests 09/06/17 09/06/17 09/07/17 14:45 19:00 06:00 WBC 8.0 D RBC 4.81 Hgb 12.9 D Hct 40.3 MCV 83.9 MCH 26.9 MCHC 32.1 RDW 12.9 Plt Count 234 D MPV 8.4 D Sodium Potassium Chloride Carbon Dioxide Anion Gap BUN Creatinine Creat Clearance w eGFR POC Glucometer 346 Random Glucose Calcium Total Bilirubin AST ALT Alkaline Phosphatase Total Protein Albumin Urine Color Ltyellow Urine Appearance Clear Urine pH 5.0 Ur Specific [place] 1.018 Urine Protein Negative Urine Glucose (UA) 3+ H Urine Ketones Negative Urine Blood 1+ H Urine Nitrite Negative Urine Bilirubin Negative Urine Urobilinogen Negative Urine WBC (Auto) 1 Urine RBC (Auto) 3 Urine Bacteria Rare RPR Titer 09/07/17 09/07/17 06:00 06:00 WBC RBC Hgb Hct MCV MCH MCHC RDW Plt Count MPV Sodium 135 L Potassium 4.4 Chloride 102 Carbon Dioxide 23 Anion Gap 10 BUN 18 D Creatinine 1.3 D Creat Clearance w eGFR 57.31 POC Glucometer Random Glucose 374 H* D Calcium 9.2 Total Bilirubin 0.3 D AST 18 D ALT 30 Alkaline Phosphatase 84 D Total Protein 7.7 D Albumin 3.6 D Urine Color Urine Appearance Urine pH Ur Specific [place] Urine Protein Urine Glucose (UA) Urine Ketones Urine Blood Urine Nitrite Urine Bilirubin Urine Urobilinogen Urine WBC (Auto) Urine RBC (Auto) Urine Bacteria RPR Titer Nonreactive labs noted Assessment: 09/07/17 13:05 Withdrawal sx. Plan: Continue detox
[2017-09-07 16:17] LABS: URINE LEUK ESTERASE Negative (NEGATIVE)
[2017-09-07] MEDS ORDERED: INSULIN (NOVOLOG) ASPART 100 UNITS/ML 10ML VIAL ONE (16:53)
[2017-09-07] MEDS ORDERED: QUEtiapine FUMARATE 50 MG TABLET PO SCH (22:00)
[2017-09-07] MEDS: THIAMINE HCL 100 MG TABLET (FP) PO SCH (22:15)
[2017-09-07] MEDS: ATORVASTATIN CA 20 MG TABLET (FP) PO SCH (22:16)
[2017-09-08 06:23] VITALS: BP 100/54; PULSE 62; TEMP 97.9
[2017-09-08] MEDS: chlordiazePOXIDE HCL 25 MG CAPSULE PO SCH ×2 (06:24→10:37)
[2017-09-08] MEDS: metFORMIN HCL 500 MG TABLET (FP) PO SCH (06:24)
[2017-09-08] MEDS: INSULIN SLIDING SCALE (NOVOLOG) 1 VIAL SQ SCH (06:28)
[2017-09-08] MEDS ORDERED: INSULIN (NOVOLOG) ASPART 100 UNITS/ML 10ML VIAL ONE (06:28)
[2017-09-08] MEDS: LISINOPRIL 10 MG TABLET (FP) PO SCH (10:37)
[2017-09-08] MEDS: PRENATAL VITAMINS W/ FOLIC ACID TABLET (FP) PO SCH (10:37)
[2017-09-08] MEDS: PANTOPRAZOLE 20 MG TABLET (FP) PO SCH (10:37)
--- NOTE | 2017-09-08 14:12 | DS ---
[facility] Detox Discharge Summary Admission Date: 09/06/17 Discharge Date: 09/08/17 - History Present History: Alcohol Dependence, Cocaine Dependence Pertinent Past History: Type II DM GERD Hep C HTN - Physical Exam Results Vital Signs: Vital Signs Temperature 97.9 F 09/08/17 06:00 Pulse Rate 62 09/08/17 06:00 Respiratory Rate 20 09/08/17 06:00 Blood Pressure 100/54 09/08/17 06:00 O2 Sat by Pulse Oximetry (%) Pertinent Admission Physical Exam Findings: Withdrawal sx. Laboratory Last Values WBC 8.0 K/mm3 (4.0-10.0) D 09/07/17 06:00 RBC 4.81 M/mm3 (4.00-5.60) 09/07/17 06:00 Hgb 12.9 GM/dL (11.7-16.9) D 09/07/17 06:00 Hct 40.3 % (35.4-49) 09/07/17 06:00 MCV 83.9 fl (80-96) 09/07/17 06:00 MCH 26.9 pg (25.7-33.7) 09/07/17 06:00 MCHC 32.1 g/dl (32.0-35.9) 09/07/17 06:00 RDW 12.9 % (11.9-15.9) 09/07/17 06:00 Plt Count 234 K/MM3 (134-434) D 09/07/17 06:00 MPV 8.4 fl (7.5-11.1) D 09/07/17 06:00 Sodium 135 mmol/L (136-145) L 09/07/17 06:00 Potassium 4.4 mmol/L (3.5-5.1) 09/07/17 06:00 Chloride 102 mmol/L (98-107) 09/07/17 06:00 Carbon Dioxide 23 mmol/L (21-32) 09/07/17 06:00 Anion Gap 10 (8-16) 09/07/17 06:00 BUN 18 mg/dL (7-18) D 09/07/17 06:00 Creatinine 1.3 mg/dL (0.7-1.3) D 09/07/17 06:00 Creat Clearance w eGFR 57.31 (>60) 09/07/17 06:00 POC Glucometer 365 UNITS (80-120) 09/08/17 06:23 Random Glucose 374 mg/dL (74-106) H* D 09/07/17 06:00 Calcium 9.2 mg/dL (8.5-10.1) 09/07/17 06:00 Total Bilirubin 0.3 mg/dL (0.2-1.0) D 09/07/17 06:00 AST 18 U/L (15-37) D 09/07/17 06:00 ALT 30 U/L (12-78) 09/07/17 06:00 Alkaline Phosphatase 84 U/L (45-117) D 09/07/17 06:00 Total Protein 7.7 g/dl (6.4-8.2) D 09/07/17 06:00 Albumin 3.6 g/dl (3.4-5.0) D 09/07/17 06:00 Urine Color Ltyellow 09/06/17 19:00 Urine Appearance Clear 09/06/17 19:00 Urine pH 5.0 (5.0-8.0) 09/06/17 19:00 Ur Specific [place] 1.018 (1.001-1.035) 09/06/17 19:00 Urine Protein Negative (NEGATIVE) 09/06/17 19:00 Urine Glucose (UA) 3+ (NEGATIVE) H 09/06/17 19:00 Urine Ketones Negative (NEGATIVE) 09/06/17 19:00 Urine Blood 1+ (NEGATIVE) H 09/06/17 19:00 Urine Nitrite Negative (NEGATIVE) 09/06/17 19:00 Urine Bilirubin Negative (NEGATIVE) 09/06/17 19:00 Urine Urobilinogen Negative mg/dL (0.2-1.0) 09/06/17 19:00 Ur Leukocyte Esterase Negative (NEGATIVE) 09/06/17 19:00 Urine WBC (Auto) 1 09/06/17 19:00 Urine RBC (Auto) 3 09/06/17 19:00 Urine Bacteria Rare /hpf (NONE SEEN) 09/06/17 19:00 RPR Titer Nonreactive (NONREACTIVE) 09/07/17 06:00 labs noted - Medication Discharge Medications: Ambulatory Orders Insulin Lispro [Humalog] 6 units SQ ASDIR 07/01/17 Lisinopril [Zestril] 10 mg PO DAILY 07/01/17 Quetiapine Fumarate [Seroquel -] 150 mg PO HS 07/01/17 Atorvastatin Ca [Lipitor] 20 mg PO HS 09/06/17 Gabapentin [Neurontin -] 200 mg PO BID 09/06/17 Metformin HCl [Glucophage -] 500 mg PO BID 09/06/17 Mirtazapine [Remeron -] 30 mg PO HS 09/06/17 Omeprazole 20 mg PO DAILY 09/06/17 Risperidone [Risperdal] 3 mg PO HS 09/06/17 - Diagnosis (1) Alcohol dependence with uncomplicated withdrawal Status: Acute (2) Cocaine dependence Status: Acute Qualifiers: Substance use status: uncomplicated Qualified Code(s): F14.20 - Cocaine dependence, uncomplicated (3) Hepatitis C Status: Acute (4) Diabetes mellitus, type II, insulin dependent Status: Chronic (5) GERD (gastroesophageal reflux disease) Status: Chronic Qualifiers: Esophagitis presence: without esophagitis Qualified Code(s): K21.9 - Gastro -esophageal reflux disease without esophagitis (6) Hypertension Status: Chronic Qualifiers: Hypertension type: essential hypertension Qualified Code(s): I10 - Essential (primary) hypertension (7) Substance induced mood disorder Status: Acute (8) Substance-induced sleep disorder Status: Acute - AMA Did Patient Leave Against Medical Advice: Yes
[2017-09-08] MEDS ORDERED: chlordiazePOXIDE 5 MG CAPSULE PO SCH (23:00)
--- NOTE | 2017-09-09 09:42 | EKG ---
Test Reason : Blood Pressure : / mmHG Vent. Rate : 071 BPM Atrial Rate : 071 BPM P-R Int : 180 ms QRS Dur : 092 ms QT Int : 424 ms P-R-T Axes : 077 069 065 degrees QTc Int : 460 ms NORMAL SINUS RHYTHM NORMAL ECG WHEN COMPARED WITH ECG OF 01-JUL-2017 18:35, NO SIGNIFICANT CHANGE WAS FOUND Confirmed by CHANELL GRAVES MD ([id number]) on 09/09/2017 9:41:42 AM Referred By: Confirmed By:CHANELL GRAVES MD
[2017-09-09] MEDS ORDERED: chlordiazePOXIDE HCL 10 MG CAPSULE PO SCH (23:00)
== END 2017-09-08 11:43 | disposition left against medical advice (07) | DRG 770 ==
LOC: EDBD → YASAS 12:08 → Y6N 16:10
PROVIDERS: ADMIT Internal Medicine; ATTEND Internal Medicine
PROC: HZ2ZZZZ Detoxification Services for Substance Abuse Treatment (ICD-10-PCS; principal; 2017-09-06)
DX: F10.230 Alcohol dependence with withdrawal, uncomplicated (principal); F14.20 Cocaine dependence, uncomplicated; F17.210 Nicotine dependence, cigarettes, uncomplicated; F19.24 Other psychoactive substance dependence with psychoactive substance-induced mood disorder; F19.282 Other psychoactive substance dependence with psychoactive substance-induced sleep disorder; I10 Essential (primary) hypertension; B18.2 Chronic viral hepatitis C; E11.9 Type 2 diabetes mellitus without complications; Z79.4 Long term (current) use of insulin
CPT/HCPCS: 36415; 80053; 81003; 81015; 85027; 86593; 93005; 93010

== ENCOUNTER 2020-04-20 16:21 | Inpatient (IN) | payer OTHER ==
--- NOTE | 2020-04-20 17:37 | BHS.RME ---
Substance Use & Tx History - Substance Use History Alcohol Substance amount: 20 nips & 10 cans of beer Frequency of use: Daily Substance route: Oral - Last Treatment Date of last treatment: 2016 Where was last treatment: Detox Physical/Psych/Mental Status - Behavior Eye Contact: Normal - Cooperativeness Cooperativeness: Reluctant - Thinking Thought Processes: Logical, Loosened Thought content: Future oriented - Physical Health Problems Is patient presently having any pain?: No Does patient presently have any injuries (include location): Yes (left wrist self-cutting ) Does patient currently have a fever: No CIWA Nausea/Vomitin-No Nausea/No Vomiting Muscle Tremors: None Anxiety: 2 Agitation: 0-Normal Activity Paroxysmal Sweats: No Perspiration Orientation: 2-Disoriented Date<2 days Tacttile Disturbances: 1-Very Mild Itch/Numbness Auditory Disturbances: 0-None Visual Disturbances: 0-None Headache: 0-None Present CIWA-Ar Total Score: 5
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
[2020-04-20] MEDS ORDERED: chlordiazePOXIDE HCL 25 MG CAPSULE PO PRN (18:31)
[2020-04-20] MEDS ORDERED: BISMUTH SUBSALICYLATE 524 MG/30 ML UD PO PRN (19:03)
[2020-04-20] MEDS ORDERED: MAGNESIUM HYDROX 2400MG/30ML ORAL SUSPENSION 30 ML CUP PO PRN (19:03)
[2020-04-20] MEDS ORDERED: ACETAMINOPHEN 325 MG TABLET (FP) PO PRN ×2 (19:03)
[2020-04-20] MEDS ORDERED: IBUPROFEN 400 MG TABLET (FP) PO PRN (19:03)
[2020-04-20] MEDS ORDERED: NICOTINE POLACRILEX 2 MG GUM BUC PRN (19:03)
[2020-04-20] MEDS ORDERED: MENTHOL/PHENOL 1 EACH UD MM PRN (19:03)
[2020-04-20] MEDS ORDERED: MAG HYDROX/AL HYDROX/SIMETH 30 ML UNIT-DOSE CUP PO PRN (19:03)
[2020-04-20] MEDS ORDERED: ONDANSETRON *ODT* 4 MG TABLET SL ONE (19:03)
[2020-04-20] MEDS ORDERED: MAGNESIUM CITRATE 300 ML BOTTLE PO PRN (19:03)
[2020-04-20] MEDS ORDERED: METHOCARBAMOL 500 MG TABLET PO PRN (19:03)
[2020-04-20] MEDS ORDERED: NICOTINE 7 MG/24 HOURS TOPICAL PATCH TD SCH (19:15)
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
[2020-04-20] MEDS ORDERED: diazePAM 5 MG TABLET PO ONE (19:40)
[2020-04-20] MEDS ORDERED: diazePAM 5 MG TABLET PO PRN (19:40)
[2020-04-20 21:00] VITALS: BMI 25.8
[2020-04-20] MEDS ORDERED: MIRTAZAPINE 15 MG TABLET (FP) ONE (21:40)
[2020-04-20] MEDS: INSULIN (LEVEMIR) 100 UNITS/ML UNITS SQ SCH (21:43)
[2020-04-20] MEDS: INSULIN SLIDING SCALE (NOVOLOG) 1 VIAL SQ SCH (21:44)
[2020-04-20] MEDS: MIRTAZAPINE 30 MG TABLET PO SCH (21:46)
[2020-04-20] MEDS: hydrOXYzine PAMOATE 25 MG CAPSULE (FP) PO PRN (21:46)
[2020-04-20] MEDS: BACITRACIN 0.9 GM PACKET TP SCH (21:47)
[2020-04-20] MEDS: MELATONIN 5 MG TABLETS PO SCH (21:47)
[2020-04-20] MEDS: THIAMINE HCL 100 MG TABLET (FP) PO SCH (21:51)
[2020-04-20] MEDS: diazePAM 5 MG TABLET PO SCH (21:52)
[2020-04-20] MEDS ORDERED: GABAPENTIN 100 MG CAPSULE PO SCH (22:00)
[2020-04-20] MEDS ORDERED: INSULIN GLARGINE HUM REC ANLOG 32 UNIT SQ SCH (22:00)
[2020-04-20] MEDS ORDERED: [UNRECOGNIZED DRUG - OTHER] SQ SCH (22:00)
[2020-04-20] MEDS ORDERED: INSULIN SLIDING SCALE (NOVOLOG) 1 VIAL SQ SCH (22:00)
[2020-04-20] MEDS ORDERED: hydrOXYzine PAMOATE 25 MG CAPSULE (FP) PO SCH (22:00)
[2020-04-20] MEDS: PRENATAL VITAMINS W/ FOLIC ACID TABLET (FP) PO SCH (22:03)
[2020-04-20] MEDS ORDERED: INSULIN (NOVOLOG) ASPART 100 UNITS/ML 10ML VIAL ONE (22:33)
[2020-04-20] MEDS ORDERED: chlordiazePOXIDE HCL 25 MG CAPSULE PO SCH (23:00)
[2020-04-21] MEDS ORDERED: INSULIN (NOVOLOG) ASPART 100 UNITS/ML 10ML VIAL ONE ×2 (07:20→11:42)
[2020-04-21] MEDS: INSULIN SLIDING SCALE (NOVOLOG) 1 VIAL SQ SCH ×4 (07:21→22:49)
[2020-04-21] MEDS: diazePAM 5 MG TABLET PO SCH ×3 (07:22→22:48)
[2020-04-21] MEDS ORDERED: LISINOPRIL 10 MG PO SCH (10:00)
[2020-04-21] MEDS ORDERED: PATIENT'S OWN MEDICATION (NON-FORMULARY) (Omeprazole [Omeprazole] 20 MG) PO SCH (10:00)
[2020-04-21] MEDS ORDERED: LISINOPRIL 10 MG TABLET (FP) PO SCH (10:00)
[2020-04-21] MEDS: BACITRACIN 0.9 GM PACKET TP SCH (10:45)
[2020-04-21] MEDS: ASPIRIN 81 MG CHEWABLE TABLETS PO SCH (10:45)
[2020-04-21] MEDS: GABAPENTIN 400 MG CAPSULE PO SCH (10:46)
[2020-04-21] MEDS: PANTOPRAZOLE 20 MG TABLET PO SCH (10:46)
[2020-04-21] MEDS: PRENATAL VITAMINS W/ FOLIC ACID TABLET (FP) PO SCH (10:46)
[2020-04-21] MEDS: LISINOPRIL 20 MG TABLET (FP) PO SCH (10:46)
--- NOTE | 2020-04-21 11:39 | PN ---
S CIWA - CIWA Score Nausea/Vomitin-No Nausea/No Vomiting Muscle Tremors: 3 Anxiety: 4-Mod. Anxious/Guarded Agitation: 3 Paroxysmal Sweats: 1-Minimal Palms Moist Orientation: 0-Oriented Tacttile Disturbances: 0-None Auditory Disturbances: 0-None Visual Disturbances: 0-None Headache: 0-None Present CIWA-Ar Total Score: 11 BHS Progress Note (SOAP) Subjective: Pt is a 54 y/o male admitted to detox for alcohol withdrawal sx on Librium regimen. c/o slight anxiety fatigue Objective: 04/21/20 11:36 Vital Signs - 8 hr 04/21/20 06:46 Temperature 97.5 F L Pulse Rate 59 L Respiratory 18 Rate Blood Pressure 124/73 O2 Sat by Pulse 96 Oximetry (%) Laboratory Tests 04/20/20 04/21/20 04/21/20 21:42 07:16 11:07 POC Glucometer 417 278 302 labs pending covid result pending Alert o x 3 nad oob ambulating with steady gait Assessment: 04/21/20 11:39 withdrawal sx Plan: cont detox increase po fluids maintain safety
--- NOTE | 2020-04-21 13:13 | CONSULT ---
[facility] Psychiatric Consult - Data Date of interview: 04/21/20 Admission source: [facility] Identifying data: Patient is a 54 year old single male, father of two, unemployed, domiciled, and is not currently receiving financial assistance. This is one of multiple admissions for patient. Patient admitted to for alcohol and cocaine dependence. Substance Abuse History: History of alcohol + cocaine dependence. Medical History: diabetes, acid reflux, Right ankle fracture 1993. Psychiatric History: Mr. Nascimento reports history of multiple psychiatric hospitalizations at various institutions including [facility], [facility], and most recently one month ago at [facility] due to depressed mood. Mr. Nascimento states that he was diagnosed with Bipolar disorder and prescribed Depakote (unknown dose ) and Remeron 30mg HS. Patient not interested in accepting depakote. Mr. Nascimento has also been prescribed seroquel but states that he only wants to accept remeron at this time. Patient is totally lost in follow up care. History of three suicide attempts. Patient denies thoughts or urges to hurt self or others. Physical/Sexual Abuse/Trauma History: denies. Mental Status Exam - Mental Status Exam Alert and Oriented to: Time, Place, Person Cognitive Function: Good Patient Appearance: Well Groomed Mood: Withdrawn Affect: Mood Congruent Patient Behavior: Fatigued, Cooperative (superfically cooperative.) Speech Pattern: Appropriate Voice Loudness: Mildly Soft/Quiet Thought Process: Goal Oriented Thought Disorder: Not Present Hallucinations: Denies Suicidal Ideation: Denies Homicidal Ideation: Denies Insight/Judgement: Poor Sleep: Fair Appetite: Fair Muscle strength/Tone: Normal Gait/Station: Normal Psychiatric Findings - Problem List ([place] 1, 2,3) (1) Alcohol dependence with uncomplicated withdrawal Current Visit: Yes Status: Acute (2) Cocaine dependence Current Visit: Yes Status: Chronic Qualifiers: Substance use status: uncomplicated Qualified Code(s): F14.20 - Cocaine dependence, uncomplicated (3) Nicotine dependence Current Visit: Yes Status: Chronic Qualifiers: Nicotine product type: cigarettes Substance use status: in withdrawal Qualified Code(s): F17.213 - Nicotine dependence, cigarettes, with withdrawal (4) Substance induced mood disorder Current Visit: Yes Status: Acute (5) Substance-induced sleep disorder Current Visit: Yes Status: Acute (6) Mood disorder Current Visit: Yes Status: Acute - Initial Treatment Plan Initial Treatment Plan: Psychoeducation provided. Detoxification in progress. Remeron 30mg ordered by resident.
[2020-04-21 15:17] LABS: HEMATOCRIT 35.7 % (35.4-49); HEMOGLOBIN 11.3 GM/dL (11.7-16.9); MCH 27.4 pg (25.7-33.7); MCHC 31.6 g/dl (32.0-35.9); MEAN CELL VOLUME 86.5 fl (80-96); MEAN PLT VOLUME 8.1 fl (7.5-11.1); PLATELET COUNT 260 K/MM3 (134-434); RBC 4.12 M/mm3 (4.00-5.60); WHITE BLOOD COUNT 5.4 K/mm3 (4.0-10.0)
[2020-04-21 15:35] LABS: ALBUMIN 3.1 g/dl (3.4-5.0); BILIRUBIN,TOTAL 0.3 mg/dL (0.2-1); BLOOD UREA NITROGEN 13.6 mg/dL (7-18); CALCIUM 9.2 mg/dL (8.5-10.1); CREATININE 1.2 mg/dL (0.55-1.3); POTASSIUM 4.3 mmol/L (3.5-5.1); TOT PROT 6.7 g/dl (6.4-8.2)
[2020-04-21] MEDS ORDERED: MIRTAZAPINE 15 MG TABLET (FP) ONE (21:16)
[2020-04-21] MEDS: MELATONIN 5 MG TABLETS PO SCH (22:46)
[2020-04-21] MEDS: hydrOXYzine PAMOATE 25 MG CAPSULE (FP) PO PRN (22:46)
[2020-04-21] MEDS: MIRTAZAPINE 30 MG TABLET PO SCH (22:46)
[2020-04-21] MEDS: THIAMINE HCL 100 MG TABLET (FP) PO SCH (22:47)
[2020-04-21] MEDS: INSULIN (LEVEMIR) 100 UNITS/ML UNITS SQ SCH (22:49)
[2020-04-22] MEDS ORDERED: chlordiazePOXIDE HCL 25 MG CAPSULE PO SCH (05:00)
[2020-04-22] MEDS ORDERED: diazePAM 5 MG TABLET PO SCH (06:00)
[2020-04-22] MEDS: INSULIN SLIDING SCALE (NOVOLOG) 1 VIAL SQ SCH (07:28)
[2020-04-22] MEDS ORDERED: INSULIN (NOVOLOG) ASPART 100 UNITS/ML 10ML VIAL ONE (07:28)
--- NOTE | 2020-04-22 10:31 | PN ---
S CIWA - CIWA Score Nausea/Vomitin-No Nausea/No Vomiting Muscle Tremors: None Anxiety: 1-Mildly Anxious Agitation: 3 Paroxysmal Sweats: No Perspiration Orientation: 0-Oriented Tacttile Disturbances: 0-None Auditory Disturbances: 0-None Visual Disturbances: 0-None Headache: 0-None Present CIWA-Ar Total Score: 4
--- NOTE | 2020-04-22 10:51 | DS ---
[facility] Detox Discharge Summary Admission Date: 04/20/20 Discharge Date: 04/22/20 - History Present History: Alcohol Dependence, Cannabis Dependence, Cocaine Dependence Pertinent Past History: GERD Hypertension DM Hep C Mood Disorder Injury of wrist,left,superficial - Physical Exam Results Vital Signs: Vital Signs Temperature 97.3 F L 04/22/20 06:44 Pulse Rate 61 04/22/20 06:44 Respiratory Rate 18 04/22/20 06:44 Blood Pressure 120/71 04/22/20 06:44 O2 Sat by Pulse Oximetry (%) 98 04/22/20 06:41 Alert o x 3 nad oob ambulating with steady gait cardic:s1 s2, rrr lung:ctab abdomen:soft,+bs,nt,nd extremities:no edema,skin intact,Active ROM all ext. Pertinent Admission Physical Exam Findings: Laboratory Tests 04/20/20 04/21/20 04/21/20 21:42 07:16 10:00 WBC RBC Hgb Hct MCV MCH MCHC RDW Plt Count MPV Sodium Potassium Chloride Carbon Dioxide Anion Gap BUN Creatinine Est GFR (CKD-EPI)AfAm Est GFR (CKD-EPI)NonAf POC Glucometer 417 278 Random Glucose Calcium Total Bilirubin AST ALT Alkaline Phosphatase Total Protein Albumin Syphilis Serology Non-reactive 04/21/20 04/21/20 04/21/20 10:00 10:00 11:07 WBC 5.4 RBC 4.12 Hgb 11.3 L Hct 35.7 MCV 86.5 MCH 27.4 MCHC 31.6 L RDW 15.0 D Plt Count 260 MPV 8.1 Sodium 137 Potassium 4.3 Chloride 102 Carbon Dioxide 29 Anion Gap 6 L BUN 13.6 Creatinine 1.2 Est GFR (CKD-EPI)AfAm 77.88 Est GFR (CKD-EPI)NonAf 67.19 POC Glucometer 302 Random Glucose 347 H Calcium 9.2 Total Bilirubin 0.3 AST 16 ALT 25 Alkaline Phosphatase 67 Total Protein 6.7 Albumin 3.1 L Syphilis Serology 04/21/20 04/21/20 04/22/20 17:46 20:06 07:24 WBC RBC Hgb Hct MCV MCH MCHC RDW Plt Count MPV Sodium Potassium Chloride Carbon Dioxide Anion Gap BUN Creatinine Est GFR (CKD-EPI)AfAm Est GFR (CKD-EPI)NonAf POC Glucometer 316 471 287 Random Glucose Calcium Total Bilirubin AST ALT Alkaline Phosphatase Total Protein Albumin Syphilis Serology - Treatment Hospital Course: Detox Protocol Followed, Detoxed Safely, Discharged Condition Good, Rehab Referral Accepted Patient has Accepted a Rehab Referral to: [facility] - Medication Discharge Medications: Ambulatory Orders Quetiapine Fumarate [Seroquel -] 150 mg PO HS 07/01/17 Atorvastatin Ca [Lipitor] 20 mg PO HS 09/06/17 Omeprazole 20 mg PO DAILY 09/06/17 Risperidone [Risperdal] 3 mg PO HS 09/06/17 metFORMIN HCL [Glucophage -] 500 mg PO BID 09/06/17 Divalproex Sodium [Depakote] 250 mg PO BID 04/20/20 Mirtazapine 30 mg PO DAILY 04/20/20 Aspirin 81 mg PO DAILY #14 tab.chew 04/22/20 Gabapentin 400 mg PO DAILY #14 cap 04/22/20 Insulin Glargine,Hum.rec.anlog [Lantus] 32 units SQ HS #1 vial 04/22/20 Lisinopril 20 mg PO DAILY #14 tablet 04/22/20 - Diagnosis (1) Alcohol dependence with uncomplicated withdrawal Status: Acute (2) Cocaine dependence Status: Acute Qualifiers: Substance use status: uncomplicated Qualified Code(s): F14.20 - Cocaine dependence, uncomplicated (3) Nicotine dependence Status: Acute Qualifiers: Nicotine product type: cigarettes Substance use status: in withdrawal Qualified Code(s): F17.213 - Nicotine dependence, cigarettes, with withdrawal (4) Hepatitis C Status: Chronic Qualifiers: Viral hepatitis chronicity: unspecified (5) Injury of wrist, left, superficial Status: Acute Qualifiers: Encounter type: subsequent encounter Qualified Code(s): S60.912D - Unspecified superficial injury of left wrist, subsequent encounter (6) Diabetes mellitus, type II, insulin dependent Status: Chronic (7) GERD (gastroesophageal reflux disease) Status: Chronic Qualifiers: Esophagitis presence: without esophagitis Qualified Code(s): K21.9 - Gastro-esophageal reflux disease without esophagitis (8) Hypertension Status: Chronic Qualifiers: Hypertension type: essential hypertension Qualified Code(s): I10 - Essential (primary) hypertension - AMA Did Patient Leave Against Medical Advice: No
[2020-04-22] MEDS: LISINOPRIL 20 MG TABLET (FP) PO SCH (10:58)
[2020-04-22] MEDS: ASPIRIN 81 MG CHEWABLE TABLETS PO SCH (10:58)
[2020-04-22] MEDS: GABAPENTIN 400 MG CAPSULE PO SCH (10:58)
[2020-04-22] MEDS: PRENATAL VITAMINS W/ FOLIC ACID TABLET (FP) PO SCH (10:58)
[2020-04-22] MEDS: PANTOPRAZOLE 20 MG TABLET PO SCH (10:59)
[2020-04-22] MEDS: BACITRACIN 0.9 GM PACKET TP SCH (11:08)
[2020-04-22 12:04] VITALS: BP 126/70; PULSE 71; TEMP 96.4
[2020-04-23] MEDS ORDERED: chlordiazePOXIDE HCL 10 MG CAPSULE PO PRN
[2020-04-23] MEDS ORDERED: chlordiazePOXIDE HCL 10 MG CAPSULE PO SCH (05:00)
[2020-04-23] MEDS ORDERED: diazePAM 5 MG TABLET PO ONE (06:00)
[2020-04-24] MEDS ORDERED: chlordiazePOXIDE HCL 10 MG CAPSULE PO SCH (05:00)
[2020-04-25] MEDS ORDERED: chlordiazePOXIDE HCL 10 MG CAPSULE PO ONE (05:00)
== END 2020-04-22 11:05 | disposition home or self-care (01) | DRG 774 ==
LOC: EDBD 16:21 → YASAS 16:21 → Y5N DETOX 20:59
PROVIDERS: ADMIT Allergy & Immunology; ATTEND Allergy & Immunology
PROC: HZ2ZZZZ Detoxification Services for Substance Abuse Treatment (ICD-10-PCS; principal; 2020-04-20)
DX: F10.230 Alcohol dependence with withdrawal, uncomplicated (principal); F14.20 Cocaine dependence, uncomplicated; F12.20 Cannabis dependence, uncomplicated; F17.210 Nicotine dependence, cigarettes, uncomplicated; F19.282 Other psychoactive substance dependence with psychoactive substance-induced sleep disorder; F19.24 Other psychoactive substance dependence with psychoactive substance-induced mood disorder; F39 Unspecified mood [affective] disorder; F31.9 Bipolar disorder, unspecified; E11.42 Type 2 diabetes mellitus with diabetic polyneuropathy; Z79.4 Long term (current) use of insulin; I10 Essential (primary) hypertension; K21.9 Gastro-esophageal reflux disease without esophagitis; B18.2 Chronic viral hepatitis C; S69.82XD Other specified injuries of left wrist, hand and finger(s), subsequent encounter; X78.0XXD Intentional self-harm by sharp glass, subsequent encounter; Z56.0 Unemployment, unspecified
CPT/HCPCS: 36415; 80053; 82962; 85027; 86780; U0003

== ENCOUNTER 2021-02-05 12:43 | Inpatient (IN) | payer OTHER ==
[2021-02-05 13:11] VITALS: BMI 25.1
[2021-02-05] MEDS ORDERED: IBUPROFEN 400 MG TABLET (FP) PO PRN (15:33)
[2021-02-05] MEDS ORDERED: BISMUTH SUBSALICYLATE 524 MG/30 ML UD PO PRN (15:33)
[2021-02-05] MEDS ORDERED: MENTHOL/PHENOL 1 EACH UD MM PRN (15:33)
[2021-02-05] MEDS ORDERED: hydrOXYzine PAMOATE 25 MG CAPSULE (FP) PO PRN (15:33)
[2021-02-05] MEDS ORDERED: MAGNESIUM HYDROX 2400MG/30ML ORAL SUSPENSION 30 ML CUP PO PRN (15:33)
[2021-02-05] MEDS ORDERED: chlordiazePOXIDE HCL 25 MG CAPSULE PO PRN (15:33)
[2021-02-05] MEDS ORDERED: METHOCARBAMOL 500 MG TABLET PO PRN (15:33)
[2021-02-05] MEDS ORDERED: NICOTINE POLACRILEX 2 MG GUM BUC PRN (15:33)
[2021-02-05] MEDS ORDERED: MAG HYDROX/AL HYDROX/SIMETH 30 ML UNIT-DOSE CUP PO PRN (15:33)
[2021-02-05] MEDS ORDERED: MAGNESIUM CITRATE 300 ML BOTTLE PO PRN (15:33)
[2021-02-05] MEDS ORDERED: ACETAMINOPHEN 325 MG TABLET (FP) PO PRN ×2 (15:33)
[2021-02-05] MEDS ORDERED: ONDANSETRON *ODT* 4 MG TABLET SL PRN (15:33)
[2021-02-05] MEDS ORDERED: INSULIN (NOVOLOG) ASPART 100 UNITS/ML 10ML VIAL SQ ONE (15:54)
[2021-02-05] MEDS ORDERED: INSULIN (NOVOLOG) ASPART 100 UNITS/ML 10ML VIAL ONE (16:05)
[2021-02-05] MEDS: metFORMIN HCL 500 MG TABLET (FP) PO SCH (17:37)
[2021-02-05] MEDS: chlordiazePOXIDE HCL 25 MG CAPSULE PO SCH ×2 (17:38→23:03)
[2021-02-05] MEDS: INSULIN SLIDING SCALE (NOVOLOG) 1 VIAL SQ SCH (17:39)
[2021-02-05] MEDS: INSULIN (LEVEMIR) 100 UNITS/ML UNITS SQ SCH (23:02)
[2021-02-05] MEDS: MELATONIN 5 MG TABLETS PO SCH (23:03)
[2021-02-05] MEDS: ATORVASTATIN CA 20 MG TABLET (FP) PO SCH (23:03)
[2021-02-05] MEDS: THIAMINE HCL 100 MG TABLET (FP) PO SCH (23:03)
[2021-02-06] MEDS: chlordiazePOXIDE HCL 25 MG CAPSULE PO SCH ×4 (06:31→23:24)
[2021-02-06] MEDS: metFORMIN HCL 500 MG TABLET (FP) PO SCH ×2 (07:31→17:00)
[2021-02-06] MEDS ORDERED: INSULIN (NOVOLOG) ASPART 100 UNITS/ML 10ML VIAL ONE ×2 (07:37→17:00)
[2021-02-06] MEDS: INSULIN SLIDING SCALE (NOVOLOG) 1 VIAL SQ SCH ×3 (07:46→17:00)
[2021-02-06] MEDS: PRENATAL VITAMINS W/ FOLIC ACID TABLET (FP) PO SCH (10:25)
[2021-02-06] MEDS: GABAPENTIN 400 MG CAPSULE PO SCH (10:25)
[2021-02-06] MEDS: ASPIRIN 81 MG CHEWABLE TABLETS PO SCH (10:25)
[2021-02-06] MEDS: LISINOPRIL 20 MG TABLET PO SCH (10:25)
[2021-02-06] MEDS: DIVALPROEX SODIUM 500 MG TABLET E.C. PO SCH ×2 (13:47→22:48)
[2021-02-06] MEDS ORDERED: QUEtiapine FUMARATE 100 MG TABLET (FP) PO SCH (22:00)
[2021-02-06] MEDS ORDERED: MIRTAZAPINE 15 MG TABLET (FP) PO SCH (22:00)
[2021-02-06] MEDS: THIAMINE HCL 100 MG TABLET (FP) PO SCH (22:48)
[2021-02-06] MEDS: ATORVASTATIN CA 20 MG TABLET (FP) PO SCH (22:48)
[2021-02-06] MEDS: INSULIN (LEVEMIR) 100 UNITS/ML UNITS SQ SCH (22:49)
[2021-02-06] MEDS: MELATONIN 5 MG TABLETS PO SCH (22:49)
[2021-02-07] MEDS: chlordiazePOXIDE HCL 25 MG CAPSULE PO SCH ×2 (06:46→10:44)
[2021-02-07] MEDS: metFORMIN HCL 500 MG TABLET (FP) PO SCH (07:46)
[2021-02-07] MEDS: INSULIN SLIDING SCALE (NOVOLOG) 1 VIAL SQ SCH ×2 (07:47→11:56)
[2021-02-07] MEDS: ASPIRIN 81 MG CHEWABLE TABLETS PO SCH (10:43)
[2021-02-07] MEDS: DIVALPROEX SODIUM 500 MG TABLET E.C. PO SCH (10:44)
[2021-02-07] MEDS: PRENATAL VITAMINS W/ FOLIC ACID TABLET (FP) PO SCH (10:44)
[2021-02-07] MEDS: GABAPENTIN 400 MG CAPSULE PO SCH (10:44)
[2021-02-07] MEDS: LISINOPRIL 20 MG TABLET PO SCH (10:44)
[2021-02-07 11:09] LABS: HEMATOCRIT 34.7 % (35.4-49); HEMOGLOBIN 11.3 GM/dL (11.7-16.9); MCH 28.1 pg (25.7-33.7); MCHC 32.7 g/dl (32.0-35.9); MEAN CELL VOLUME 86.1 fl (80-96); PLATELET COUNT 257 K/MM3 (134-434); RBC 4.03 M/mm3 (4.00-5.60); RDW 13.2 % (11.9-15.9); WHITE BLOOD COUNT 6.5 K/mm3 (4.0-10.0)
[2021-02-07 11:15] LABS: CALCIUM 8.9 mg/dL (8.5-10.1)
[2021-02-07 11:16] LABS: ALBUMIN 2.9 g/dl (3.4-5.0); BLOOD UREA NITROGEN 17.4 mg/dL (7-18)
[2021-02-07 11:19] LABS: CREATININE 1.3 mg/dL (0.55-1.3)
[2021-02-07 11:20] LABS: BILIRUBIN,TOTAL 0.4 mg/dL (0.2-1)
[2021-02-07 11:21] LABS: TOT PROT 6.3 g/dl (6.4-8.2)
[2021-02-07 12:29] VITALS: BP 123/71; PULSE 78; TEMP 98.4
[2021-02-08] MEDS ORDERED: chlordiazePOXIDE HCL 10 MG CAPSULE PO PRN
[2021-02-08] MEDS ORDERED: chlordiazePOXIDE HCL 10 MG CAPSULE PO SCH (05:00)
[2021-02-09] MEDS ORDERED: chlordiazePOXIDE HCL 10 MG CAPSULE PO SCH (05:00)
[2021-02-10] MEDS ORDERED: chlordiazePOXIDE HCL 10 MG CAPSULE PO ONE (05:00)
== END 2021-02-07 14:04 | disposition home or self-care (01) | DRG 774 ==
LOC: YASAS 12:43 → Y6N 14:48
PROVIDERS: ADMIT Allergy & Immunology; ATTEND Allergy & Immunology
PROC: HZ2ZZZZ Detoxification Services for Substance Abuse Treatment (ICD-10-PCS; principal; 2021-02-05)
DX: F10.230 Alcohol dependence with withdrawal, uncomplicated (principal); F14.20 Cocaine dependence, uncomplicated; F17.210 Nicotine dependence, cigarettes, uncomplicated; F19.24 Other psychoactive substance dependence with psychoactive substance-induced mood disorder; F39 Unspecified mood [affective] disorder; F31.9 Bipolar disorder, unspecified; E11.42 Type 2 diabetes mellitus with diabetic polyneuropathy; Z79.4 Long term (current) use of insulin; I10 Essential (primary) hypertension; E78.00 Pure hypercholesterolemia, unspecified; K21.9 Gastro-esophageal reflux disease without esophagitis; B18.2 Chronic viral hepatitis C; Z56.0 Unemployment, unspecified; Z59.0 Homelessness
CPT/HCPCS: 36415; 80053; 82962; 85027; 86780; C9803; U0003; U0005

== ENCOUNTER 2022-11-23 17:18 | Inpatient (IN) | payer OTHER ==
[2022-11-23 19:06] VITALS: BMI 25.1
[2022-11-23] MEDS ORDERED: LOPERAMIDE HCL 2 MG CAPSULE PO PRN (21:10)
[2022-11-23] MEDS ORDERED: MAG HYDROX/AL HYDROX/SIMETH 30 ML UNIT-DOSE CUP PO PRN (21:10)
[2022-11-23] MEDS ORDERED: ONDANSETRON *ODT* 4 MG TABLET SL PRN (21:10)
[2022-11-23] MEDS ORDERED: ACETAMINOPHEN 325 MG TABLET (FP) PO PRN ×2 (21:10)
[2022-11-23] MEDS ORDERED: BENZOCAINE/MENTHOL (CHLORASEPTIC ) LOZENGE MM PRN (21:10)
[2022-11-23] MEDS ORDERED: POLYETHYLENE GLYCOL (HEALTHYLAX) 3350 17 GM PACKET PO PRN (21:10)
[2022-11-23] MEDS ORDERED: NICOTINE POLACRILEX 2 MG GUM BUC PRN (21:10)
[2022-11-23] MEDS ORDERED: DICYCLOMINE HCL 10 MG CAPSULE PO PRN (21:10)
[2022-11-23] MEDS ORDERED: MAGNESIUM HYDROX 2400MG/30ML ORAL SUSPENSION 30 ML CUP PO PRN (21:10)
[2022-11-23] MEDS ORDERED: NALOXONE HCL (KLOXXADO) 8 MG SPRAY NS PRN (21:10)
[2022-11-23] MEDS ORDERED: BISMUTH SUBSALICYLATE 524 MG/30 ML PO PRN (21:10)
[2022-11-23] MEDS ORDERED: hydrOXYzine PAMOATE 25 MG CAPSULE (FP) PO PRN (21:10)
[2022-11-23] MEDS ORDERED: hydrOXYzine PAMOATE 25 MG CAPSULE (FP) PO ONE (22:12)
[2022-11-23] MEDS ORDERED: chlordiazePOXIDE HCL 25 MG CAPSULE PO PRN (22:19)
[2022-11-24] MEDS: METHOCARBAMOL 500 MG TABLET PO PRN ×2 (02:43→10:11)
[2022-11-24] MEDS: INSULIN SLIDING SCALE (NOVOLOG) 1 VIAL SQ SCH ×4 (03:48→17:13)
[2022-11-24] MEDS: ATORVASTATIN CA 20 MG TABLET (FP) PO SCH ×2 (03:48→21:40)
[2022-11-24] MEDS: THIAMINE HCL 100 MG TABLET (FP) PO SCH ×2 (03:49→21:40)
[2022-11-24] MEDS: chlordiazePOXIDE HCL 25 MG CAPSULE PO SCH ×5 (03:50→22:16)
[2022-11-24] MEDS: MELATONIN 5 MG TABLETS PO SCH ×2 (03:50→21:41)
[2022-11-24] MEDS: metFORMIN HCL 500 MG TABLET (FP) PO SCH ×2 (06:15→17:31)
[2022-11-24] MEDS: PANTOPRAZOLE 20 MG TABLET PO SCH (10:09)
[2022-11-24] MEDS: PRENATAL VITAMINS W/ FOLIC ACID TABLET (FP) PO SCH (10:09)
[2022-11-24] MEDS: NICOTINE 14 MG/24 HOURS TOPICAL PATCH TD SCH (10:09)
[2022-11-24] MEDS: LISINOPRIL 20 MG TABLET PO SCH (10:09)
[2022-11-24] MEDS ORDERED: MIRTAZAPINE 15 MG TABLET (FP) PO SCH (22:00)
[2022-11-24] MEDS ORDERED: QUEtiapine FUMARATE 100 MG TABLET (FP) PO SCH (22:00)
[2022-11-25] MEDS: chlordiazePOXIDE HCL 25 MG CAPSULE PO SCH ×2 (06:42→10:20)
[2022-11-25] MEDS ORDERED: INSULIN SLIDING SCALE (NOVOLOG) 1 VIAL SQ ONE (07:10)
[2022-11-25] MEDS: INSULIN SLIDING SCALE (NOVOLOG) 1 VIAL SQ SCH ×2 (08:11→12:15)
[2022-11-25] MEDS: metFORMIN HCL 500 MG TABLET (FP) PO SCH (08:11)
[2022-11-25] MEDS: LISINOPRIL 20 MG TABLET PO SCH (10:20)
[2022-11-25] MEDS: PANTOPRAZOLE 20 MG TABLET PO SCH (10:20)
[2022-11-25] MEDS: PRENATAL VITAMINS W/ FOLIC ACID TABLET (FP) PO SCH (10:20)
[2022-11-25] MEDS: NICOTINE 14 MG/24 HOURS TOPICAL PATCH TD SCH (10:22)
[2022-11-25 10:48] VITALS: BP 113/64; PULSE 58; RESP 17; TEMP 97
[2022-11-26] MEDS ORDERED: chlordiazePOXIDE HCL 10 MG CAPSULE PO PRN
[2022-11-26] MEDS ORDERED: chlordiazePOXIDE HCL 10 MG CAPSULE PO SCH (05:00)
[2022-11-27] MEDS ORDERED: chlordiazePOXIDE HCL 10 MG CAPSULE PO SCH (05:00)
[2022-11-28] MEDS ORDERED: chlordiazePOXIDE HCL 10 MG CAPSULE PO ONE (05:00)
== END 2022-11-25 13:21 | disposition left against medical advice (07) | DRG 770 ==
LOC: YASAS 17:18 → Y3N 11-24 01:00
PROVIDERS: ADMIT Allergy & Immunology; ATTEND Surgery
PROC: HZ2ZZZZ Detoxification Services for Substance Abuse Treatment (ICD-10-PCS; principal; 2022-11-24)
DX: F10.230 Alcohol dependence with withdrawal, uncomplicated (principal); F14.20 Cocaine dependence, uncomplicated; F17.210 Nicotine dependence, cigarettes, uncomplicated; F31.9 Bipolar disorder, unspecified; F19.24 Other psychoactive substance dependence with psychoactive substance-induced mood disorder; G62.9 Polyneuropathy, unspecified; E78.5 Hyperlipidemia, unspecified; I10 Essential (primary) hypertension; K21.9 Gastro-esophageal reflux disease without esophagitis; E11.9 Type 2 diabetes mellitus without complications; Z79.4 Long term (current) use of insulin; B18.2 Chronic viral hepatitis C; Z86.19 Personal history of other infectious and parasitic diseases; Z86.11 Personal history of tuberculosis; Z91.14 Patient's other noncompliance with medication regimen; Z59.01 Sheltered homelessness
CPT/HCPCS: 82962

== ENCOUNTER 2024-01-06 11:29 | Inpatient (IN) | payer OTHER ==
[2024-01-06 12:08] VITALS: BMI 21.8
[2024-01-06] MEDS ORDERED: BISMUTH SUBSALICYLATE 262 MG/15 ML BTL PO PRN (15:28)
[2024-01-06] MEDS ORDERED: MAGNESIUM HYDROX 2400MG/30ML ORAL SUSPENSION 30 ML CUP PO PRN (15:28)
[2024-01-06] MEDS ORDERED: LOPERAMIDE HCL 2 MG CAPSULE PO PRN (15:28)
[2024-01-06] MEDS ORDERED: BENZOCAINE/MENTHOL (CHLORASEPTIC ) LOZENGE MM PRN (15:28)
[2024-01-06] MEDS ORDERED: MAG HYDROX/AL HYDROX/SIMETH 30 ML UNIT-DOSE CUP PO PRN (15:28)
[2024-01-06] MEDS ORDERED: chlordiazePOXIDE HCL 25 MG CAPSULE PO PRN (15:28)
[2024-01-06] MEDS ORDERED: DICYCLOMINE HCL 10 MG CAPSULE PO PRN (15:28)
[2024-01-06] MEDS ORDERED: BENZONATATE 200 MG CAPSULE PO PRN (15:28)
[2024-01-06] MEDS ORDERED: POLYETHYLENE GLYCOL (HEALTHYLAX) 3350 17 GM PACKET PO PRN (15:28)
[2024-01-06] MEDS ORDERED: NALOXONE HCL 0.4 MG/ML VIAL IM PRN (15:28)
[2024-01-06] MEDS ORDERED: guaiFENesin 600 MG TABLET.ER (FP) PO PRN (15:28)
[2024-01-06] MEDS ORDERED: ACETAMINOPHEN 325 MG TABLET (FP) PO PRN (15:28)
[2024-01-06] MEDS ORDERED: IBUPROFEN 400 MG TABLET (FP) PO PRN (15:28)
[2024-01-06] MEDS ORDERED: NALOXONE HCL (KLOXXADO) 8 MG SPRAY NS PRN (15:28)
[2024-01-06] MEDS ORDERED: chlordiazePOXIDE HCL 25 MG CAPSULE ONE (17:26)
[2024-01-06] MEDS ORDERED: PRENATAL VITAMINS W/ FOLIC ACID TABLET (FP) PO ONE (17:27)
[2024-01-06] MEDS: NICOTINE 7 MG/24 HOURS TOPICAL PATCH TD SCH (17:28)
[2024-01-06] MEDS: PRENATAL VITAMINS W/ FOLIC ACID TABLET (FP) PO SCH (17:28)
[2024-01-06] MEDS: chlordiazePOXIDE HCL 25 MG CAPSULE PO SCH (17:30)
[2024-01-06] MEDS: METHOCARBAMOL 500 MG TABLET PO PRN (18:13)
[2024-01-06] MEDS: IBUPROFEN 600 MG TABLET (FP) PO PRN (18:13)
[2024-01-06] MEDS: hydrOXYzine PAMOATE 25 MG CAPSULE (FP) PO PRN (18:13)
[2024-01-06] MEDS: metFORMIN HCL 500 MG TABLET (FP) PO SCH (18:18)
[2024-01-06] MEDS ORDERED: INSULIN (NOVOLOG) ASPART 100 UNITS/ML 10ML VIAL ONE (18:20)
[2024-01-06] MEDS: INSULIN ASPART SLIDING SCALE (NOVOLOG) 1 VIAL SQ SCH (18:22)
[2024-01-06] MEDS: MELATONIN 5 MG TABLETS PO SCH (22:08)
[2024-01-06] MEDS: ATORVASTATIN CA 20 MG TABLET (FP) PO SCH (22:09)
[2024-01-06] MEDS: THIAMINE HCL 100 MG TABLET (FP) PO SCH (22:09)
[2024-01-06] MEDS: ONDANSETRON *ODT* 4 MG TABLET SL PRN (22:09)
[2024-01-07] MEDS: LISINOPRIL 20 MG TABLET PO SCH (10:23)
[2024-01-07] MEDS: GABAPENTIN 400 MG CAPSULE PO SCH (10:23)
[2024-01-07] MEDS: PANTOPRAZOLE 20 MG TABLET PO SCH (10:23)
[2024-01-07] MEDS: ASPIRIN 81 MG CHEWABLE TABLETS PO SCH (10:23)
[2024-01-07] MEDS: INSULIN ASPART SLIDING SCALE (NOVOLOG) 1 VIAL SQ SCH (11:32)
[2024-01-07] MEDS ORDERED: INSULIN (NOVOLOG) ASPART 100 UNITS/ML 10ML VIAL ONE (13:35)
[2024-01-07] MEDS: INSULIN (LEVEMIR) 100 UNITS/ML UNITS SQ SCH (22:03)
[2024-01-08] MEDS: chlordiazePOXIDE HCL 25 MG CAPSULE PO SCH (05:15)
[2024-01-08 06:41] VITALS: BP 143/85; PULSE 90; RESP 17; TEMP 97.7
[2024-01-08] MEDS ORDERED: INSULIN (NOVOLOG) ASPART 100 UNITS/ML 10ML VIAL ONE ×2 (06:51→11:36)
[2024-01-09] MEDS ORDERED: chlordiazePOXIDE HCL 10 MG CAPSULE PO PRN
[2024-01-09] MEDS ORDERED: chlordiazePOXIDE HCL 10 MG CAPSULE PO SCH (05:00)
[2024-01-10] MEDS ORDERED: chlordiazePOXIDE HCL 10 MG CAPSULE PO SCH (05:00)
[2024-01-11] MEDS ORDERED: chlordiazePOXIDE HCL 10 MG CAPSULE PO ONE (05:00)
== END 2024-01-08 12:37 | disposition left against medical advice (07) | DRG 770 ==
LOC: YASAS 11:29 → Y6N 15:50
PROVIDERS: ADMIT Allergy & Immunology; ATTEND Surgery
PROC: HZ2ZZZZ Detoxification Services for Substance Abuse Treatment (ICD-10-PCS; principal; 2024-01-06)
DX: F10.230 Alcohol dependence with withdrawal, uncomplicated (principal); F14.20 Cocaine dependence, uncomplicated; F17.210 Nicotine dependence, cigarettes, uncomplicated; F25.0 Schizoaffective disorder, bipolar type; I10 Essential (primary) hypertension; K21.9 Gastro-esophageal reflux disease without esophagitis; E78.5 Hyperlipidemia, unspecified; E11.9 Type 2 diabetes mellitus without complications; Z79.84 Long term (current) use of oral hypoglycemic drugs; M54.50 Low back pain, unspecified; G89.29 Other chronic pain; R63.4 Abnormal weight loss; Z68.21 Body mass index [BMI] 21.0-21.9, adult; Z86.19 Personal history of other infectious and parasitic diseases; Z59.02 Unsheltered homelessness
CPT/HCPCS: 80305; 82962; 87811; 93005; 93010; Q0162

== ENCOUNTER 2024-09-14 20:50 | Inpatient (IN) | payer OTHER ==
[2024-09-14 21:17] VITALS: BMI 22.1
[2024-09-14] MEDS ORDERED: BENZOCAINE/MENTHOL (CHLORASEPTIC ) LOZENGE MM PRN (22:55)
[2024-09-14] MEDS ORDERED: ACETAMINOPHEN 325 MG TABLET (FP) PO PRN (22:55)
[2024-09-14] MEDS ORDERED: hydrOXYzine PAMOATE 25 MG CAPSULE (FP) PO PRN (22:55)
[2024-09-14] MEDS ORDERED: LOPERAMIDE HCL 2 MG CAPSULE PO PRN (22:55)
[2024-09-14] MEDS ORDERED: IBUPROFEN 400 MG TABLET (FP) PO PRN (22:55)
[2024-09-14] MEDS ORDERED: BENZONATATE 200 MG CAPSULE PO PRN (22:55)
[2024-09-14] MEDS ORDERED: guaiFENesin 600 MG TABLET.ER (FP) PO PRN (22:55)
[2024-09-14] MEDS ORDERED: P-EPHED 60MG/TRIPROLIDI 2.5MG TABLET PO PRN (22:55)
[2024-09-14] MEDS: INSULIN ASPART SLIDING SCALE (NOVOLOG) 1 VIAL SQ SCH (23:17)
[2024-09-14] MEDS ORDERED: INSULIN (NOVOLOG) ASPART 100 UNITS/ML 10ML VIAL ONE (23:20)
[2024-09-14] MEDS ORDERED: MELATONIN 5 MG TABLETS ONE (23:20)
[2024-09-14] MEDS: MELATONIN 5 MG TABLETS PO SCH (23:24)
[2024-09-15 03:57] LABS: PH,URINE 5.5 (5.0-8.0); URINE APPEARANCE Error; URINE BILIRUBIN NEGATIVE (NEGATIVE); URINE COLOR YELLOW; URINE GLUCOSE (UA) 3+ (NEGATIVE); URINE KETONE NEGATIVE (NEGATIVE); URINE LEUK ESTERASE NEGATIVE (NEGATIVE); URINE NITRITE NEGATIVE (NEGATIVE); URINE PROTEIN NEGATIVE (NEGATIVE); URINE UROBILINOGEN 0.2 mg/dL (0.2-1.0)
[2024-09-15] MEDS ORDERED: INSULIN (NOVOLOG) ASPART 100 UNITS/ML 10ML VIAL ONE ×2 (06:09→17:03)
[2024-09-15] MEDS: metFORMIN HCL 500 MG TABLET (FP) PO SCH (06:10)
[2024-09-15 09:53] LABS: HEMATOCRIT 35.8 % (35.4-49); HEMOGLOBIN 11.5 GM/dL (11.7-16.9); MCH 28.6 pg (25.7-33.7); MCHC 32.2 g/dl (32.0-35.9); MEAN CELL VOLUME 88.7 fl (80-96); MEAN PLT VOLUME 7.1 fl (7.5-11.1); PLATELET COUNT 268 10^3/uL (134-434); RBC 4.03 M/mm3 (4.00-5.60); RDW 12.6 % (11.9-15.9)
[2024-09-15] MEDS: PRENATAL VITAMINS W/ FOLIC ACID TABLET (FP) PO SCH (10:07)
[2024-09-15] MEDS: ASPIRIN 81 MG CHEWABLE TABLETS PO SCH (10:07)
[2024-09-15] MEDS ORDERED: TUBERCULIN PPD 5 TU/0.1ML VIAL ID ONE (10:10)
[2024-09-15] MEDS: NICOTINE POLACRILEX 2 MG GUM BUC PRN (10:13)
[2024-09-15 10:40] LABS: CHLORIDE 107 mmol/L (98-107); POTASSIUM 4.1 mmol/L (3.5-5.1); SODIUM 140 mmol/L (136-145)
[2024-09-15 10:46] LABS: ANION GAP 8 mmol/L (4-13); CO2 26 mmol/L (21-32); GLUCOSE,RANDOM 278 mg/dL (74-106)
[2024-09-15 10:47] LABS: BLOOD UREA NITROGEN 18.2 mg/dL (7-18)
[2024-09-15 10:49] LABS: SGOT/AST 14 U/L (15-37); SGPT/ALT 26 U/L (13-61)
[2024-09-15 10:51] LABS: BILIRUBIN,TOTAL 0.2 mg/dL (0.2-1); TOT PROT 6.5 g/dl (6.4-8.2)
[2024-09-15 10:52] LABS: ALK PHOS 67 U/L (45-117)
[2024-09-15] MEDS: THIAMINE 100 MG TABLET PO SCH (21:26)
[2024-09-15] MEDS: QUEtiapine FUMARATE 100 MG TABLET (FP) PO SCH (21:27)
[2024-09-16] MEDS ORDERED: INSULIN (NOVOLOG) ASPART 100 UNITS/ML 10ML VIAL ONE (06:08)
[2024-09-16] MEDS: GABAPENTIN 300 MG CAPSULE PO SCH (15:37)
[2024-09-16] MEDS: NICOTINE POLACRILEX 4 MG GUM BUC PRN (21:43)
[2024-09-16] MEDS: MINERAL OIL/PETROLAT/WATER TOPICAL CREAM 113 GM JAR TP PRN (21:43)
[2024-09-16] MEDS: BACLOFEN 10 MG TABLET (FP) PO SCH (21:43)
[2024-09-17] MEDS ORDERED: INSULIN (NOVOLOG) ASPART 100 UNITS/ML 10ML VIAL ONE ×2 (06:06→10:55)
[2024-09-18] MEDS: TRIMETHOBENZAMIDE HCL 200MG/2ML INJ IM ONE (00:47)
[2024-09-18] MEDS ORDERED: INSULIN (NOVOLOG) ASPART 100 UNITS/ML 10ML VIAL ONE ×3 (06:00→16:49)
[2024-09-18] MEDS: MAG HYDROX/AL HYDROX/SIMETH 30 ML UNIT-DOSE CUP PO PRN (10:49)
[2024-09-18] MEDS: IBUPROFEN 600 MG TABLET (FP) PO PRN (13:38)
[2024-09-19] MEDS: POLYETHYLENE GLYCOL (HEALTHYLAX) 3350 17 GM PACKET PO PRN (21:32)
[2024-09-20] MEDS ORDERED: INSULIN (NOVOLOG) ASPART 100 UNITS/ML 10ML VIAL ONE (17:04)
[2024-09-20] MEDS: MAGNESIUM HYDROX 2400MG/30ML ORAL SUSPENSION 30 ML CUP PO PRN (22:44)
[2024-09-20] MEDS: ONDANSETRON *ODT* 4 MG TABLET SL PRN (22:45)
[2024-09-21] MEDS ORDERED: GABAPENTIN 300 MG CAPSULE PO SCH (11:25)
[2024-09-21] MEDS: GABAPENTIN PO SCH (13:05)
[2024-09-21] MEDS ORDERED: INSULIN (NOVOLOG) ASPART 100 UNITS/ML 10ML VIAL ONE (16:47)
[2024-09-21] MEDS: DOCUSATE SODIUM 100 MG CAPSULE (FP) PO SCH (21:06)
[2024-09-22] MEDS ORDERED: INSULIN (NOVOLOG) ASPART 100 UNITS/ML 10ML VIAL ONE (16:37)
[2024-09-22] MEDS: MIRTAZAPINE 30 MG TABLET PO SCH (21:27)
[2024-09-22] MEDS: NICOTINE POLACRILEX 2 MG LOZENGE BC PRN (21:37)
[2024-09-23] MEDS ORDERED: INSULIN (NOVOLOG) ASPART 100 UNITS/ML 10ML VIAL ONE ×2 (06:51→16:35)
[2024-09-24] MEDS ORDERED: INSULIN (NOVOLOG) ASPART 100 UNITS/ML 10ML VIAL ONE ×2 (06:06→16:41)
[2024-09-24] MEDS: LACTULOSE 20 GM/30 ML UDC (FOR ORAL USE ONLY) PO PRN (08:54)
[2024-09-24] MEDS: MIRTAZAPINE 30 MG TABLET PO SCH (21:20)
[2024-09-25] MEDS ORDERED: INSULIN (NOVOLOG) ASPART 100 UNITS/ML 10ML VIAL ONE ×2 (06:07→21:42)
[2024-09-26] MEDS ORDERED: INSULIN (NOVOLOG) ASPART 100 UNITS/ML 10ML VIAL ONE ×2 (11:57→16:15)
[2024-09-27] MEDS ORDERED: INSULIN (NOVOLOG) ASPART 100 UNITS/ML 10ML VIAL ONE ×2 (05:57→16:30)
[2024-09-28] MEDS ORDERED: INSULIN (NOVOLOG) ASPART 100 UNITS/ML 10ML VIAL ONE ×3 (06:43→21:24)
[2024-09-29] MEDS ORDERED: INSULIN (NOVOLOG) ASPART 100 UNITS/ML 10ML VIAL ONE ×3 (06:21→16:35)
[2024-09-30] MEDS ORDERED: INSULIN (NOVOLOG) ASPART 100 UNITS/ML 10ML VIAL ONE ×2 (06:35→11:15)
[2024-10-01] MEDS ORDERED: INSULIN (NOVOLOG) ASPART 100 UNITS/ML 10ML VIAL ONE ×2 (06:10→16:33)
[2024-10-02] MEDS ORDERED: INSULIN (NOVOLOG) ASPART 100 UNITS/ML 10ML VIAL ONE ×3 (06:26→21:25)
[2024-10-03] MEDS ORDERED: INSULIN (NOVOLOG) ASPART 100 UNITS/ML 10ML VIAL ONE ×2 (06:36→11:07)
[2024-10-04] MEDS ORDERED: INSULIN (NOVOLOG) ASPART 100 UNITS/ML 10ML VIAL ONE ×3 (06:37→16:40)
[2024-10-05] MEDS ORDERED: INSULIN (NOVOLOG) ASPART 100 UNITS/ML 10ML VIAL ONE ×3 (06:50→21:26)
[2024-10-05] MEDS ORDERED: NALOXONE (NYS OPIOID OVERDOSE PROGRAM) 4 MG/0.1 ML SPRAY NS PRN (10:00)
[2024-10-05 15:02] LABS: HIV INTERPRETATION NEGATIVE (NEGATIVE)
[2024-10-06] MEDS ORDERED: INSULIN (NOVOLOG) ASPART 100 UNITS/ML 10ML VIAL ONE ×2 (07:14→21:56)
[2024-10-07] MEDS ORDERED: INSULIN (NOVOLOG) ASPART 100 UNITS/ML 10ML VIAL ONE ×4 (07:54→21:36)
[2024-10-08] MEDS ORDERED: INSULIN (NOVOLOG) ASPART 100 UNITS/ML 10ML VIAL ONE (12:03)
[2024-10-08] MEDS: TOLNAFTATE 1% CREAM 15 GM TUBE TP SCH (21:52)
[2024-10-09] MEDS ORDERED: INSULIN (NOVOLOG) ASPART 100 UNITS/ML 10ML VIAL ONE (05:48)
[2024-10-10] MEDS ORDERED: INSULIN (NOVOLOG) ASPART 100 UNITS/ML 10ML VIAL ONE ×4 (07:52→16:44)
[2024-10-11] MEDS ORDERED: INSULIN (NOVOLOG) ASPART 100 UNITS/ML 10ML VIAL ONE ×3 (11:50→21:30)
[2024-10-11 14:55] VITALS: RESP 18
[2024-10-12] MEDS ORDERED: INSULIN (NOVOLOG) ASPART 100 UNITS/ML 10ML VIAL ONE (06:13)
[2024-10-12 07:03] VITALS: TEMP 97.9
[2024-10-12] MEDS: NALOXONE (NYS OPIOID OVERDOSE PROGRAM) 4 MG/0.1 ML SPRAY NS SCH (10:21)
[2024-10-12 11:24] VITALS: BP 123/77; PULSE 101
== END 2024-10-12 10:50 | disposition home or self-care (01) | DRG 772 ==
LOC: YASAS 20:50 → Y5N 23:05
PROVIDERS: ADMIT Allergy & Immunology; ATTEND Family Medicine Addiction Medicine
PROC: HZ42ZZZ Group Counseling for Substance Abuse Treatment, Cognitive-Behavioral (ICD-10-PCS; principal; 2024-09-14)
DX: F10.20 Alcohol dependence, uncomplicated (principal); F14.20 Cocaine dependence, uncomplicated; F17.210 Nicotine dependence, cigarettes, uncomplicated; F31.9 Bipolar disorder, unspecified; F20.9 Schizophrenia, unspecified; F10.24 Alcohol dependence with alcohol-induced mood disorder; F10.282 Alcohol dependence with alcohol-induced sleep disorder; I10 Essential (primary) hypertension; E78.5 Hyperlipidemia, unspecified; E11.42 Type 2 diabetes mellitus with diabetic polyneuropathy; Z79.4 Long term (current) use of insulin; Z79.84 Long term (current) use of oral hypoglycemic drugs; K21.9 Gastro-esophageal reflux disease without esophagitis; B35.1 Tinea unguium; M19.90 Unspecified osteoarthritis, unspecified site; M54.50 Low back pain, unspecified; G89.29 Other chronic pain; Z86.19 Personal history of other infectious and parasitic diseases; Z86.11 Personal history of tuberculosis
CPT/HCPCS: 36415; 73630-TC-RT-FY; 80053; 80305; 80307; 81003; 82962; 85027; 86780; 87389; 87811; 93005; 93010; J0475; Q0162